=== PATIENT | female | born 1960 | race Caucasian/White ===

== ENCOUNTER 2017-01-25 18:26 | Observation (INO) | payer BC ==
[~2017-01-25] VITALS: Ht 160 cm; Wt 87.8 kg
[~2017-01-25 18:26] MED LIST: AMIT10TA6 PO; AMLO-110 PO; ATV/1 PO; CITA20TA4 PO; TRET0.027 TOP
[2017-01-25] MEDS ORDERED: IBUP-1050 PO (18:50)
--- NOTE | 2017-01-25 19:34 | DIAGNOSTIC IMAGING REPORT ---
CHEST ONE VIEW PORTABLE CLINICAL HISTORY: Chest pain. COMPARISON STUDY: Chest radiograph July 14, 2015. FINDINGS: The lung volumes are normal. There is no pneumothorax or pleural effusion. Cardiomediastinal silhouette is unremarkable. There is no evidence of pulmonary edema. No consolidation is identified. IMPRESSION: No acute cardiopulmonary findings. Electronically signed by: Geovany Mc M.D. 01/25/2017 7:33 PM Dictated Date/Time: 01/25/2017 7:32 PM
[2017-01-25 19:47] LABS: BASO % 0.5 %; BASO ABS # 0.03 K/uL (0-0.2); COMPLETE YES; EOS % 2.7 %; HEMATOCRIT 42.9 % (37-47); IG% 0.2 %; LYMPH % 38.9 %; LYMPH ABS # 2.33 K/uL (1.2-3.4); MEAN CELL VOLUME 85.6 fL (80-100); MEAN CORPUSCULAR HEMOGLOBIN 28.3 pg (25-34); MEAN CORPUSCULAR HGB CONC 33.1 g/dl (32-36); MEAN PLATELET VOLUME 8.5 fL (7.4-10.4); NEUT % 51.7 %; PLATELET COUNT 267 K/uL (130-400); RED BLOOD COUNT 5.01 M/uL (4.2-5.4); WHITE BLOOD COUNT 5.99 K/uL (4.8-10.8)
[2017-01-25] MEDS ORDERED: ASPIRIN 81 MG CHEW PO STA (19:59)
[2017-01-25] MEDS ORDERED: NITROGLYCERIN OINT 2% 1GM PACKET EXT ONE (20:00)
[2017-01-25 20:15] LABS: ALT/SGPT 32 U/L (12-78); BLOOD UREA NITROGEN 12 mg/dl (7-18); CALCIUM 9.5 mg/dl (8.5-10.1); CARBON DIOXIDE 26 mmol/L (21-32); CHLORIDE 105 mmol/L (98-107); CREATININE 0.72 mg/dl (0.60-1.20); GLUCOSE 103 mg/dl (70-99); POTASSIUM 3.5 mmol/L (3.5-5.1); SODIUM 140 mmol/L (136-145)
[2017-01-25 20:20] LABS: ALKALINE PHOSPHATASE 82 U/L (45-117); AST/SGOT 11 U/L (15-37); CKMB/CK RATIO 1.8 (0-3.0)
[2017-01-26] MEDS ORDERED: IV FLUIDS COMPLETED PRN (00:30)
[2017-01-26] MEDS ORDERED: CITALOPRAM 20 MG TAB PO ONE (00:39)
[2017-01-26] MEDS ORDERED: AMITRIPTYLINE HCL 10 MG TAB PO ONE (00:39)
[2017-01-26] MEDS ORDERED: MoRPHine SULFATE 2 MG/ML CARP IV PRN (00:45)
[2017-01-26] MEDS ORDERED: POLYETHYLENE (MIRALAX) 17 GM PACK PO PRN (00:45)
[2017-01-26] MEDS ORDERED: NITROGLYCERIN 0.4 MG SL PER TAB CHARGE SL PRN (00:45)
[2017-01-26] MEDS ORDERED: LORAZEPAM 1 MG TAB PO PRN (00:45)
[2017-01-26] MEDS ORDERED: ACETAMINOPHEN 325 MG TAB PO PRN (00:45)
[2017-01-26] MEDS ORDERED: ONDANSETRON INJ 2 MG/ML 2 ML VIAL IV PRN (00:45)
[2017-01-26 01:09] LABS: PROTHROMBIN TIME (PATIENT) 10.8 SECONDS (9.0-12.0)
--- NOTE | 2017-01-26 01:39 | EMERGENCY ROOM VISIT NOTE ---
History Report prepared by Jcarlos: Mikala Smith Under the Supervision of: Dr. Sundar Cooley M.D. First contact with patient: 19:09 Chief Complaint: SHORTNESS OF BREATH Stated Complaint: SOB, BACK PAIN History of Present Illness The patient is a 56 year old female who presents to the Emergency Room with complaints of persistent back pain that began today prior to arrival. She currently rates her discomfort as a 5/10 in severity. The patient states that yesterday she did not feel well, and states that today she developed lower back pain. She additionally notes that the pain radiates into her bilateral rib cages. The patient additionally associates shortness of breath. She states that she has been experiencing diarrhea. The patient states that she was nauseous earlier today, but states that it has resolved. Pt denies LOC, headache, fevers, chills, diaphoresis, visual changes, neck pain, tearing pain radiating to the back, personal history or family history of aneurysm or pulmonary embolism, uncontrolled hypertension, breathing difficulties, leg swelling, coagulation abnormalities, prolonged travel, recent surgery or immobilization, vomiting, abdominal pain, melena, hematochezia, urinary symptoms , numbness, weakness, lymphadenopathy, rash, or other complaints. Source of History: patient Onset: prior to arrival Position: back Symptom Intensity: 5/10 Timing: other (persistent) Associated Symptoms: + SOB, + nausea, + diarrhea Review of Systems See HPI for pertinent positives and negatives. A total of ten systems were reviewed and were otherwise negative. Past Medical & Surgical Medical Problems: (1) Anxiety (2) Carpal tunnel syndrome (3) Hypertension (4) Shortness of breath Surgical Problems: (1) H/O: hysterectomy (2) History of (3) S/P appendectomy Family History Patient reports no known family medical history. Social History Smoking Status: Never Smoker Alcohol Use: none Drug Use: none Marital Status: Housing Status: lives with significant other Current/Historical Medications Scheduled Amitriptyline Hcl (Elavil), 20 MG PO HS Amlodipine (Norvasc), 5 MG PO DAILY Citalopram Hydrobromide (Citalopram Hydrobromide), 1 TAB PO DAILY Scheduled PRN Ibuprofen (Advil), 200-600 MG PO Q4H PRN for Pain or Fever Lorazepam (Ativan), 1 MG PO HS PRN for Anxiety/Agitation Allergies Coded Allergies: Sulfa Antibiotics (Verified Allergy, Intermediate, severe facial swelling , 01/25/17) Lisinopril (Verified Adverse Reaction, Intermediate, cough, 01/25/17) Physical Exam Vital Signs Date Time Temp Pulse Resp B/P (MAP) Pulse Ox O2 Delivery O2 Flow Rate FiO2 01/26/17 00:45 61 21 125/76 96 Room Air 01/25/17 23:41 57 15 93 Room Air 01/25/17 23:19 58 01/25/17 23:11 63 96 01/25/17 22:41 61 132/74 97 01/25/17 22:40 56 20 132/74 97 Room Air 01/25/17 21:45 60 15 114/77 97 Room Air 01/25/17 21:16 60 17 119/56 01/25/17 21:01 54 15 124/67 01/25/17 20:45 57 130/73 01/25/17 20:37 54 17 133/70 98 Room Air 01/25/17 20:26 61 19 97 Room Air 01/25/17 19:56 53 15 96 Room Air 01/25/17 19:31 64 01/25/17 19:13 97 Room Air 01/25/17 19:13 99 Room Air 01/25/17 18:55 68 18 130/86 98 Room Air 01/25/17 18:38 36.6 66 20 154/79 96 Room Air Physical Exam GENERAL: Awake, alert, well-appearing, in no distress HENT: Normocephalic, atraumatic. Oropharynx unremarkable. EYES: Normal conjunctiva. Sclera non-icteric. NECK: Supple. No nuchal rigidity. FROM. No JVD. RESPIRATORY: Clear to auscultation. CARDIAC: Regular rate, normal rhythm. Extremities warm and well perfused. Pulses equal. ABDOMEN: Soft, non-distended. No tenderness to palpation. No rebound or guarding. No masses. RECTAL: Deferred. MUSCULOSKELETAL: Chest examination reveals no tenderness. The back is symmetrical on inspection without obvious abnormality. There is no CVA tenderness to palpation. No joint edema. LOWER EXTREMITIES: Calves are equal size bilaterally and non-tender. No edema. No discoloration. NEURO: Normal sensorium. No sensory or motor deficits noted. SKIN: No rash or jaundice noted.+ Medical Decision & Procedures ER Provider Diagnostic Interpretation: X-ray: Per my interpretation, radiologist review. CHEST ONE VIEW PORTABLE CLINICAL HISTORY: Chest pain. COMPARISON STUDY: Chest radiograph July 14, 2015. FINDINGS: The lung volumes are normal. There is no pneumothorax or pleural effusion. Cardiomediastinal silhouette is unremarkable. There is no evidence of pulmonary edema. No consolidation is identified. IMPRESSION: No acute cardiopulmonary findings. Electronically signed by: Geovany Mc M.D. 01/25/2017 7:33 PM Dictated Date/Time: 01/25/2017 7:32 PM Laboratory Results 01/25/17 19:36 Red Blood Count 5.01, Mean Corpuscular Volume 85.6, Mean Corpuscular Hemoglobin 28.3, Mean Corpuscular Hemoglobin Concent 33.1, Mean Platelet Volume 8.5, Neutrophils (%) (Auto) 51.7, Lymphocytes (%) (Auto) 38.9, Monocytes (%) (Auto) 6.0, Eosinophils (%) (Auto) 2.7, Basophils (%) (Auto) 0.5, Neutrophils # (Auto) 3.10, Lymphocytes # (Auto) 2.33, Monocytes # (Auto) 0.36, Eosinophils # (Auto) 0.16, Basophils # (Auto) 0.03 01/25/17 19:36 Test 01/25/17 19:36 01/25/17 19:44 01/26/17 01:30 White Blood Count 5.99 K/uL (4.8-10.8) Red Blood Count 5.01 M/uL (4.2-5.4) Hemoglobin 14.2 g/dL (12.0-16.0) Hematocrit 42.9 % (37-47) Mean Corpuscular Volume 85.6 fL (80-100) Mean Corpuscular Hemoglobin 28.3 pg (25-34) Mean Corpuscular Hemoglobin Concent 33.1 g/dl (32-36) Platelet Count 267 K/uL (130-400) Mean Platelet Volume 8.5 fL (7.4-10.4) Neutrophils (%) (Auto) 51.7 % Lymphocytes (%) (Auto) 38.9 % Monocytes (%) (Auto) 6.0 % Eosinophils (%) (Auto) 2.7 % Basophils (%) (Auto) 0.5 % Neutrophils # (Auto) 3.10 K/uL (1.4-6.5) Lymphocytes # (Auto) 2.33 K/uL (1.2-3.4) Monocytes # (Auto) 0.36 K/uL (0.11-0.59) Eosinophils # (Auto) 0.16 K/uL (0-0.5) Basophils # (Auto) 0.03 K/uL (0-0.2) RDW Standard Deviation 41.0 fL (36.4-46.3) RDW Coefficient of Variation 13.0 % (11.5-14.5) Immature Granulocyte % (Auto) 0.2 % Immature Granulocyte # (Auto) 0.01 K/uL (0.00-0.02) Prothrombin Time 10.8 SECONDS (9.0-12.0) Prothromb Time International Ratio 1.0 (0.9-1.1) Anion Gap 9.0 mmol/L (3-11) Est Creatinine Clear Calc Drug Dose 89.9 ml/min Estimated GFR () 107.0 Estimated GFR (Non- 92.3 BUN/Creatinine Ratio 16.0 (10-20) Calcium Level 9.5 mg/dl (8.5-10.1) Total Bilirubin 0.3 mg/dl (0.2-1) Direct Bilirubin < 0.1 mg/dl (0-0.2) Aspartate Amino Transf (AST/SGOT) 11 U/L (15-37) Alanine Aminotransferase (ALT/SGPT) 32 U/L (12-78) Alkaline Phosphatase 82 U/L (45-117) Total Protein 7.6 gm/dl (6.4-8.2) Albumin 4.1 gm/dl (3.4-5.0) Lipase 98 U/L (73-393) Bedside D-Dimer 267 ng/mlFEU (0-450) Creatine Kinase MB Ratio (0-3.0) Laboratory results reviewed by me Medications Administered Medications (Trade) Dose Ordered Sig/Michelle Route Start Time Stop Time Status Last Admin Dose Admin Aspirin (Aspirin Chew) 324 mg NOW STAT PO 01/25/17 19:59 01/25/17 20:00 DC 01/25/17 20:44 324 MG Nitroglycerin (Nitroglycerin 2% Oint) 0.5 inch NOW ONCE EXT 01/25/17 20:00 01/25/17 20:01 DC 01/25/17 20:44 0.5 INCH ECG Indication: SOB/dyspnea Rate (beats per minute): 56 Rhythm: sinus bradycardia Findings: T-wave inversion (Anterior), no ectopy, other (poor R wave progression, LVH) Comparison ECG Date: 2015 Change: When compared to EKG done at an outside site in 2016 show nonspecific T wave abnormalities, no T wave inversions were noted. ED Course 1928: The patient was evaluated in room C6. A complete history and physical exam was performed. 1999: I reevaluated the patient and informed her that her EKG changes are new. Ordered Aspirin 324 mg PO, Nitroglycerin 0.5 inch EXT. 2123: I reevaluated the patient and she is resting comfortably. I discussed the exam findings with her and I discussed the treatment plan. She verbalized complete understanding and agreement. She is going to be evaluated for further treatment. 2206: I discussed the patients case with Rafy Sidhu. She is going to evaluate the patient for further treatment. Medical Decision Medication Reconciliation: I attest that I have personally reviewed the patient' s current medication list Patient was found to have a slightly elevated blood pressure due to circumstances. She will be admitted for further care. Triage Nursing notes reviewed. The patient's presentation and history were concerning for shortness of breath and back pain. Etiologies such as pneumonia, COPD, reactive airway disease, CHF, cardiac ischemia, pulmonary embolism, pneumothorax, musculoskeletal, infections, gastrointestinal, as well as others were entertained. The patient was evaluated. Clinically she looked well however she had some findings on ECG that were somewhat concerning. The patient did not have an old ECG here. I did get a report of an ECG from the [employer] system and this did not have any of the T-wave inversions noted. The patient was given aspirin and nitroglycerin. This did help with her symptoms. Her CBC, chem panel, d-dimer, LFTs, lipase, and cardiac markers were negative. Given the symptoms in conjunction with the ECG the patient will need further evaluation and management in the hospital. Chest x-ray was unremarkable. There is no evidence of widened mediastinum or infiltrate. No pneumothorax. A consultation was placed with the Rafy hospitalist. The patient was evaluated in the Emergency Room for further management. Consults Time Called: [id number] Consulting Physician: Rafy Sidhu Returned Call: [phone] I discussed the patients case with Rafy Sidhu. She is going to evaluate the patient for further treatment. Impression Primary Impression: Shortness of breath Additional Impressions: Back pain Acute electrocardiogram changes Scribe Attestation The scribe's documentation has been prepared under my direction and personally reviewed by me in its entirety. I confirm that the note above accurately reflects all work, treatment, procedures, and medical decision making performed by me. Departure Information Dispostion Being Evaluated By Hospitalist Referrals Marvin Rodriguez M.D. (PCP) Problem Qualifiers
[2017-01-26] MEDS ORDERED: ATORVASTATIN 40 MG TAB PO STA (01:55)
[2017-01-26] MEDS ORDERED: AMLODIPINE BESYLATE 5 MG TAB PO STA (02:14)
[2017-01-26 02:20] VITALS: BP 124/66; PULSE 65; TEMP 36.4; O2SAT 94; Ht 160 cm; Wt 87.8 kg
[2017-01-26 02:53] LABS: CKMB/CK RATIO 1.7 (0-3.0)
--- NOTE | 2017-01-26 04:04 | History and Physical ---
History & Physical Date & Time of Service: Jan 26, 2017 at 00:40 Chief Complaint: Sob, Back Pain Primary Care Physician: Marvin Rodriguez M.D. History of Present Illness Source: patient, clinic records, hospital records 56 yo F with no h/o CAD, obesity, anxiety and early family h/o heart disease in her mother presents today with acute shortness of breath and back pain that radiated around to her chest. This occurred when she awoke from a nap and lasted several hours. She drover herself to the ER and had some acute queasiness and subsequent dry heaving right before getting here. She also reports some loos stools that began last night and had a couple of episodes this morning, also. She states that all her symptoms have resolved and she is asking to go home. She is not sure if she had a stress test in the past. She asks that she not be given a chemical stress test as her mother had issues with them in the past. ROS reveals stuffy nose and headaches which are common for her with chronic sinusitis and migraines, +neck pain-also chronic with DJD of c- spine, otherwise ROS is negative. Past Medical/Surgical History Medical Problems: (1) Anxiety Status: Chronic (2) Carpal tunnel syndrome Status: Resolved (3) DJD (degenerative joint disease), cervical Status: Chronic (4) Hypertension Status: Chronic (5) RAMIREZ (obstructive sleep apnea) Status: Chronic Surgical Problems: (1) H/O: hysterectomy Status: Chronic (2) History of Status: Chronic (3) S/P appendectomy Status: Chronic Family History Early CAD BROTHER (30s) Social History Smoking Status: Never Smoker Smokeless Tobacco Use: No Alcohol Use: socially Drug Use: none Marital Status: Housing status: lives with significant other Occupational Status: employed Immunizations History of Influenza Vaccine: Yes Influenza Vaccine Date: May 01, 2016 History of Tetanus Vaccine?: Yes Tetanus Immunization Date: Oct 06, 2009 History of Pneumococcal: No History of Hepatitis B Vaccine: No Multi-Drug Resistant Organisms History of MDRO: No Allergies Coded Allergies: Sulfa Antibiotics (Verified Allergy, Intermediate, severe facial swelling , 01/25/17) Lisinopril (Verified Adverse Reaction, Intermediate, cough, 01/25/17) Home Medications Scheduled Amitriptyline Hcl (Elavil), 20 MG PO HS Amlodipine (Norvasc), 5 MG PO DAILY Citalopram Hydrobromide (Citalopram Hydrobromide), 1 TAB PO DAILY Scheduled PRN Ibuprofen (Advil), 200-600 MG PO Q4H PRN for Pain or Fever Lorazepam (Ativan), 1 MG PO HS PRN for Anxiety/Agitation Review of Systems At least ten systems were reviewed and negative except as indicated in HPI Physical Exam Vital Signs Date Time Temp Pulse Resp B/P (MAP) Pulse Ox O2 Delivery O2 Flow Rate FiO2 01/25/17 23:41 57 15 93 Room Air 01/25/17 23:19 58 01/25/17 23:11 63 96 01/25/17 22:41 61 132/74 97 01/25/17 22:40 56 20 132/74 97 Room Air 01/25/17 21:45 60 15 114/77 97 Room Air 01/25/17 21:16 60 17 119/56 01/25/17 21:01 54 15 124/67 01/25/17 20:45 57 130/73 01/25/17 20:37 54 17 133/70 98 Room Air 01/25/17 20:26 61 19 97 Room Air 01/25/17 19:56 53 15 96 Room Air 01/25/17 19:31 64 01/25/17 19:13 97 Room Air 01/25/17 19:13 99 Room Air 01/25/17 18:55 68 18 130/86 98 Room Air 01/25/17 18:38 36.6 66 20 154/79 96 Room Air GEN: onese, in no acute distress, alert and appropriate HEENT: NC/AT, PERRL, normal sclerae/conjunctivae, EOMI, pharynx non-acute, MMM CARDIO: reg rate, S1/2 heard without m/g/r, no JVD LUNGS: CTA bilaterally, no crackles, rales or wheezes, good diaphragmatic excursion BACK: no paraspinal TTP, normal movement. ABD: soft, non-tender, non-distended, no rebound or guarding, +BS EXTREMITY: RP and DP palpable 2+ bilat, no LE swelling or edema, extremities are warm and well-perfused NEURO: CN 2-12 grossly intact, sensation intact throughout, coordination intact , (reflexes) knee 2/4 bilat MUSC: 5/5 strength throughout, no gross focal deficits SKIN: warm and dry Diagnostics Laboratory Results 01/25/17 19:36 Red Blood Count 5.01, Mean Corpuscular Volume 85.6, Mean Corpuscular Hemoglobin 28.3, Mean Corpuscular Hemoglobin Concent 33.1, Mean Platelet Volume 8.5, Neutrophils (%) (Auto) 51.7, Lymphocytes (%) (Auto) 38.9, Monocytes (%) (Auto) 6.0, Eosinophils (%) (Auto) 2.7, Basophils (%) (Auto) 0.5, Neutrophils # (Auto) 3.10, Lymphocytes # (Auto) 2.33, Monocytes # (Auto) 0.36, Eosinophils # (Auto) 0.16, Basophils # (Auto) 0.03 01/25/17 19:36 Test 01/25/17 19:36 01/25/17 19:44 01/26/17 02:00 White Blood Count 5.99 K/uL (4.8-10.8) Red Blood Count 5.01 M/uL (4.2-5.4) Hemoglobin 14.2 g/dL (12.0-16.0) Hematocrit 42.9 % (37-47) Mean Corpuscular Volume 85.6 fL (80-100) Mean Corpuscular Hemoglobin 28.3 pg (25-34) Mean Corpuscular Hemoglobin Concent 33.1 g/dl (32-36) Platelet Count 267 K/uL (130-400) Mean Platelet Volume 8.5 fL (7.4-10.4) Neutrophils (%) (Auto) 51.7 % Lymphocytes (%) (Auto) 38.9 % Monocytes (%) (Auto) 6.0 % Eosinophils (%) (Auto) 2.7 % Basophils (%) (Auto) 0.5 % Neutrophils # (Auto) 3.10 K/uL (1.4-6.5) Lymphocytes # (Auto) 2.33 K/uL (1.2-3.4) Monocytes # (Auto) 0.36 K/uL (0.11-0.59) Eosinophils # (Auto) 0.16 K/uL (0-0.5) Basophils # (Auto) 0.03 K/uL (0-0.2) RDW Standard Deviation 41.0 fL (36.4-46.3) RDW Coefficient of Variation 13.0 % (11.5-14.5) Immature Granulocyte % (Auto) 0.2 % Immature Granulocyte # (Auto) 0.01 K/uL (0.00-0.02) Prothrombin Time 10.8 SECONDS (9.0-12.0) Prothromb Time International Ratio 1.0 (0.9-1.1) Anion Gap 9.0 mmol/L (3-11) Est Creatinine Clear Calc Drug Dose 89.9 ml/min Estimated GFR () 107.0 Estimated GFR (Non- 92.3 BUN/Creatinine Ratio 16.0 (10-20) Calcium Level 9.5 mg/dl (8.5-10.1) Total Bilirubin 0.3 mg/dl (0.2-1) Direct Bilirubin < 0.1 mg/dl (0-0.2) Aspartate Amino Transf (AST/SGOT) 11 U/L (15-37) Alanine Aminotransferase (ALT/SGPT) 32 U/L (12-78) Alkaline Phosphatase 82 U/L (45-117) Total Protein 7.6 gm/dl (6.4-8.2) Albumin 4.1 gm/dl (3.4-5.0) Lipase 98 U/L (73-393) Bedside D-Dimer 267 ng/mlFEU (0-450) Total Creatine Kinase 72 U/L (26-192) Creatine Kinase MB 1.2 ng/ml (0.5-3.6) Creatine Kinase MB Ratio 1.7 (0-3.0) Troponin I < 0.015 ng/ml (0-0.045) Results Past 24 Hours Test 01/25/17 19:36 01/25/17 19:44 01/26/17 00:32 Range/Units White Blood Count 5.99 4.8-10.8 K/uL Red Blood Count 5.01 4.2-5.4 M/uL Hemoglobin 14.2 12.0-16.0 g/dL Hematocrit 42.9 37-47 % Mean Corpuscular Volume 85.6 80-100 fL Mean Corpuscular Hemoglobin 28.3 25-34 pg Mean Corpuscular Hemoglobin Concent 33.1 32-36 g/dl Platelet Count 267 130-400 K/uL Mean Platelet Volume 8.5 7.4-10.4 fL Neutrophils (%) (Auto) 51.7 % Lymphocytes (%) (Auto) 38.9 % Monocytes (%) (Auto) 6.0 % Eosinophils (%) (Auto) 2.7 % Basophils (%) (Auto) 0.5 % Neutrophils # (Auto) 3.10 1.4-6.5 K/uL Lymphocytes # (Auto) 2.33 1.2-3.4 K/uL Monocytes # (Auto) 0.36 0.11-0.59 K/uL Eosinophils # (Auto) 0.16 0-0.5 K/uL Basophils # (Auto) 0.03 0-0.2 K/uL RDW Standard Deviation 41.0 36.4-46.3 fL RDW Coefficient of Variation 13.0 11.5-14.5 % Immature Granulocyte % (Auto) 0.2 % Immature Granulocyte # (Auto) 0.01 0.00-0.02 K/uL Sodium Level 140 136-145 mmol/L Potassium Level 3.5 3.5-5.1 mmol/L Chloride Level 105 98-107 mmol/L Carbon Dioxide Level 26 21-32 mmol/L Anion Gap 9.0 3-11 mmol/L Blood Urea Nitrogen 12 7-18 mg/dl Creatinine 0.72 0.60-1.20 mg/dl Est Creatinine Clear Calc Drug Dose 89.9 ml/min Estimated GFR () 107.0 Estimated GFR (Non- 92.3 BUN/Creatinine Ratio 16.0 10-20 Random Glucose 103 70-99 mg/dl Calcium Level 9.5 8.5-10.1 mg/dl Total Bilirubin 0.3 0.2-1 mg/dl Direct Bilirubin < 0.1 0-0.2 mg/dl Aspartate Amino Transf (AST/SGOT) 11 15-37 U/L Alanine Aminotransferase (ALT/SGPT) 32 12-78 U/L Alkaline Phosphatase 82 45-117 U/L Total Creatine Kinase 94 26-192 U/L Creatine Kinase MB 1.7 0.5-3.6 ng/ml Creatine Kinase MB Ratio 1.8 0-3.0 Troponin I < 0.015 0-0.045 ng/ml Total Protein 7.6 6.4-8.2 gm/dl Albumin 4.1 3.4-5.0 gm/dl Lipase 98 73-393 U/L Bedside D-Dimer 267 0-450 ng/mlFEU Diagnostic Radiology CHEST ONE VIEW PORTABLE CLINICAL HISTORY: Chest pain. COMPARISON STUDY: Chest radiograph July 14, 2015. FINDINGS: The lung volumes are normal. There is no pneumothorax or pleural effusion. Cardiomediastinal silhouette is unremarkable. There is no evidence of pulmonary edema. No consolidation is identified. IMPRESSION: No acute cardiopulmonary findings. EKG SB 56, TWI in V1-V3 Impression Assessment and Plan 56 yo F with significant shortness of breath and back pain that radiated around to her chest. 1. Dyspnea-poss 2/2 ACS although symptoms are very atypical. D-dimer was negative making PE and aortic dissection less likely. Symptoms have resolved at this time. 2. Back pain -resolved. Pt unsure what brought symptoms on but may have been related to anxiety or musculoskeletal issues. Doubt ACS. 3. Anxiety-continues on Celexa 20mg daily. 4. HTN-controlled, cont Norvasc 5mg PO daily. 5. RAMIREZ-ordered respiratory to set up BIPAP at night or while sleeping. 6. Migraines-takes Elavil QHS DVT proph-Lovenox 40 FULL CODE Dispo-telemetry overnight. Priya Goins DO [facility] Hospitalist. Level of Care Telemetry Resuscitation Status FULL RESUSCITATION VTE Prophylaxis VTE Risk Assessment Done? Y/N: Yes Risk Level: Moderate Given or contraindicated: Enoxaparin (Lovenox)SQ
[2017-01-26 05:04] VITALS: BP 124/73; PULSE 87; TEMP 36.5; O2SAT 95
[2017-01-26 07:29] VITALS: BP 124/78; PULSE 64; TEMP 36.6; O2SAT 96
[2017-01-26 07:53] LABS: CHOLESTEROL 162 mg/dl (0-200); CHOLESTEROL/HDL RATIO 3.6; CKMB/CK RATIO 1.8 (0-3.0); HDL CHOLESTEROL 45 mg/dl; LDL CHOLESTEROL CALCULATED 88 mg/dl; TRIGLYCERIDES 146 mg/dl (0-150); VERY LOW DENSITY LIPOPROT CALC 29 mg/dl
[2017-01-26] MEDS ORDERED: CITALOPRAM 20 MG TAB PO SCH (09:00)
[2017-01-26] MEDS ORDERED: ENOXAPARIN 40 MG/0.4 ML SYR SC SCH (09:00)
[2017-01-26] MEDS ORDERED: AMLODIPINE BESYLATE 5 MG TAB PO SCH ×2 (09:00→21:00)
--- NOTE | 2017-01-26 10:11 | Cardiology Consultation ---
Cardiology Consultation Date of Consultation: Jan 26, 2017 History of Present Illness Masha Mckinney is a 56 year old female seen in cardiology consultation per the request of Dr. Goins for the evaluation of abnormal EKG, shortness of breath, back pain, and abdominal discomfort. 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. She has a history of hypertension and obstructive sleep apnea. She notes that 3 days ago she helped her son move this required lifting items and doing a lot of walking. She felt well when she did these activities with no symptoms. Yesterday she had a vague illness including an upset stomach and stayed home from work. She took a nap when she got up she had acute onset of low back pain that wrapped around to the lower border of her ribs and chest and it had abdominal discomfort earlier. She spoke to a friend who is a nurse and came to the emergency room for further treatment. Her vital signs have remained stable. Her initial EKG performed on 01/25/2017 at 1920 hrs. revealed sinus bradycardia 56 bpm with poor R-wave progression, T-wave inversions noted in V1 -V3. A repeat EKG performed this morning revealed continued nonspecific T wave abnormalities in leads V1 to V3 with more of a biphasic T-wave appearance V2 and V3 rather than T-wave inversion. An outpatient EKG performed on 11/21/2015 revealed T wave flattening in the same territory. The patient's cardiac enzymes have been negative 3. This morning she feels well. She denies any chest discomfort in her back pain has resolved. On review of systems she does note a vague shortness of breath with exertion but she does not state that this is significant at present. History Past Medical History: 1. Hypertension 2. Obstructive sleep apnea 3. History of tension headaches Past Surgical History: 1. Left carpal tunnel release, 2009 2. Right carpal tunnel release 2010 3. section 2 4. Colonoscopy 2015 with findings of diverticulosis 5. Total hysterectomy 1996 for endometriosis Social History: Patient is a nonsmoker. 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 A total of 10 systems reviewed and were otherwise negative. Allergies Coded Allergies: Sulfa Antibiotics (Verified Allergy, Intermediate, severe facial swelling , 01/25/17) Lisinopril (Verified Adverse Reaction, Intermediate, cough, 01/25/17) Medications Reported Home Medications Medications Dose Route/Sig Max Daily Dose Days Date Category Advil (Ibuprofen) 200 Mg Tab 200-600 Mg PO Q4H PRN 01/25/17 Reported Ativan (Lorazepam) 1 Mg Tab 1 Mg PO HS PRN 07/14/15 Reported Norvasc (Amlodipine Besylate) 5 Mg Tab 5 Mg PO DAILY 07/14/15 Reported Elavil (Amitriptyline Hcl) 10 Mg Tab 20 Mg PO HS 07/14/15 Reported Citalopram Hydrobromide 20 Mg Tab 1 Tab PO DAILY 90 07/14/15 Reported Physical Exam Vital Signs (Last 8hrs): Last 8 Hrs Date Time Temp Pulse Resp B/P (MAP) Pulse Ox O2 Delivery O2 Flow Rate FiO2 01/26/17 08:00 Room Air 01/26/17 07:29 36.6 64 16 124/78 (93) 96 Room Air 01/26/17 05:04 36.5 87 16 124/73 (90) 95 Room Air 01/26/17 04:00 Room Air 01/26/17 02:20 36.4 65 18 124/66 94 Room Air General Appearance: Alert and Oriented x3. NAD. Head: Normocephalic Atraumatic. Eyes: PERRLA, EOMI, conjunctiva and sclera clear Neck: Supple. No carotid bruits noted. No JVD. No HJD. Respiratory: Breath sounds clear to auscultation bilaterally. No w/r/r. Cardiovascular: Reg rate and rhythm. S1 and S2 noted. No murmurs, rubs, gallops. PMI non displace. Abdomen: Normal bowel sounds, soft nontender. no abdominal bruits. Extremities: No edema, no clubbing or cyanosis. distal pulses 2/4 bilaterally. Neuro: No focal deficits. Psychiatric: Normal affect. Data D-dimer screen on 01/25/17 was negative. Last Resulted 01/25/17 19:36 Red Blood Count 5.01, Mean Corpuscular Volume 85.6, Mean Corpuscular Hemoglobin 28.3, Mean Corpuscular Hemoglobin Concent 33.1, Mean Platelet Volume 8.5, Neutrophils (%) (Auto) 51.7, Lymphocytes (%) (Auto) 38.9, Monocytes (%) (Auto) 6.0, Eosinophils (%) (Auto) 2.7, Basophils (%) (Auto) 0.5, Neutrophils # (Auto) 3.10, Lymphocytes # (Auto) 2.33, Monocytes # (Auto) 0.36, Eosinophils # (Auto) 0.16, Basophils # (Auto) 0.03 Last Resulted 01/25/17 19:36 Past 24 Hours Test 01/25/17 19:36 01/26/17 02:00 01/26/17 07:18 Range/Units Creatine Kinase MB 1.7 1.2 1.2 0.5-3.6 ng/ml Creatine Kinase MB Ratio 1.8 1.7 1.8 0-3.0 Prothromb Time International Ratio 1.0 0.9-1.1 Prothrombin Time 10.8 9.0-12.0 SECONDS Total Creatine Kinase 94 72 67 26-192 U/L Troponin I < 0.015 < 0.015 < 0.015 0-0.045 ng/ml Imaging: Chest x-ray report per radiology revealed no acute cardiopulmonary pathology EKG: As outlined in history of present illness Telemetry reviewed: Sinus rhythm Assessment & Plan Impression: 56-year-old female 1. Back discomfort, in retrospect, perhaps musculoskeletal. 2. Abnormal EKG, findings are somewhat nonspecific given her history and negative troponin. 3. Strong family history of ischemic heart disease 4. History of hypertension. 5. Lipid levels are relatively well-controlled with an LDL cholesterol 88 mg/ dL off of therapy Recommendations: Resting Echo. Proceed with Exercise Stress Echocardiogram. Further Additions Will Be Forthcoming after the Stress Echocardiogram Is Completed. Serafin Reid DO, FACC, FACOI Associate Director Global Market Research [facility], [facility]
[2017-01-26 11:14] VITALS: BP 118/78; PULSE 65; TEMP 36.7; O2SAT 95
--- NOTE | 2017-01-26 13:28 | Cardiology Procedure Brief Nt ---
Preliminary Cardiology Note Procedure Date Jan 26, 2017. Pre-Procedure Diagnosis back pain, atypical for angina Post-Procedure Diagnosis non ischemic stress test Procedure(s) Performed exercise stress echocardiogram Orthopedic Coder Tenzin Reid DO Lens Grinder Apprentice(s) TREVA Hernandez Estimated Blood Loss none Preliminary Findings Normal stress echo. Recommendations Patient's presenting symptoms were likely due to musculoskeletal back pain. Continue home BP medication. Follow up with PCP. Specimens none Complication(s) None Disposition telemetry.
--- NOTE | 2017-01-26 14:36 | EXERCISE STRESS ECHO ---
*NOTICE TO RECEIVING [employer] This information is strictly Confidential and protected under [place] law. [place] law prohibits you from making any further disclosure of this information unless further disclosure is expressly permitted by the written consent of the person to whom it pertains or is authorized by law. A general authorization for the release of medical or other information is not sufficient for this purpose. Hospital accepts no responsibility if the information is made available to any other person, INCLUDING THE PATIENT. Interpretation Summary * Name: JEANNETTE CLIFTON Study Date: 01/26/2017 11:32 AM BP: 116/73 mmHg * Patient Location: [facility]\S\N287\S\1 HR: 64 * : 1960 (M/d/yyyy) Gender: Female Height: 63 in * Age: 56 yrs Ethnicity: [place] Weight: 193 lb * Ordering Physician: Serafin eRid * Referring Physician: Self, Referred * Performed By: Tracey Flores [facility] * * Reason For Study: CHEST PAIN * BSA: 1.9 m2 * -- Conclusions -- * The study was technically adequate. * The exercise echocardiographic examination is normal without resting left ventricular wall motion abnormalities or inducible ischemia. * The stress EKG response was normal. * The heart rate and blood pressure responses to exercise were normal. * No symptoms suggestive of angina were induced. * No significant valvular heart disease was present on the resting study. Procedure Details * ECHOEX, CPT #[id number] * ECHO DOPPLER, CPT #[id number] * ECHO COLOR FLOW, CPT #[id number] Left Ventricle * The left ventricle is normal in size. * There is normal left ventricular wall thickness. * Left ventricular systolic function is normal. * Ejection Fraction = 55-60%. * Resting wall motion: Normal. Stress wall motion: Appropriate increase in Left ventricular systolic function and decrease in cavity size. No stress induced segmental wall motion abnormalities. Right Ventricle * The right ventricle is normal in size and function. Atria * The left atrial size is normal. * Right atrial size is normal. * No ASD detected; PFO is not assessed. Mitral Valve * The mitral valve is normal. * There is no mitral valve stenosis. * There is trace mitral regurgitation. Tricuspid Valve * The tricuspid valve is normal. * There is no tricuspid stenosis. * There is trace tricuspid regurgitation. Aortic Valve * The aortic valve is trileaflet. * No hemodynamically significant valvular aortic stenosis. * No aortic regurgitation is present. Pulmonic Valve * The pulmonic valve is not well visualized. Great Vessels * The aortic root is normal size. Pericardium * There is no pericardial effusion. * There is an echodensity in the pericardial space consistent with pericardial fat. Stress Parameters * The baseline EKG reveals sinus rhythm with non specifict T wave changes in the anteroseptal leads. * The stress ECG response was normal * No arrhythmia were noted with stress. * The stress portion of this study was personally supervised by the undersigned interpreting physician. * Rest heart rate was '64' BPM. * Rest blood pressure was '116/73' * Maximum heart rate achieved was 146 bpm. * Maximum heart rate was 90 % of maximum age-predicted heart rate. * Maximum blood pressure was '163/90' * Total exercise time was '05:59' * Maximum exercise MET level achieved was '7.00' METS * Maximum treadmill speed was '2.50' miles per hour. * Maximum treadmill elevation was '12.00'% grade. Left Ventricular Diastolic Function * Grade I diastolic dysfunction, (abnormal relaxation pattern). MMode 2D Measurements and Calculations Ao root diam 2.6 cm Ao root area 5.4 cm\S\2 ACS 1.7 cm LA dimension 3.6 cm LA/Ao 1.4 LVAd ap4 29.2 cm\S\2 LVLd ap4 7.2 cm EDV(MOD-sp4) 95.2 ml EDV(sp4-el) 100.6 ml LVAs ap4 18.7 cm\S\2 LVLs ap4 6.4 cm ESV(MOD-sp4) 45.8 ml ESV(sp4-el) 46.4 ml EF(MOD-sp4) 51.9 % EF(sp4-el) 53.9 % LVAd ap2 30.7 cm\S\2 LVLd ap2 7.7 cm EDV(MOD-sp2) 100.8 ml EDV(sp2-el) 103.6 ml LVAs ap2 18.7 cm\S\2 LVLs ap2 6.5 cm ESV(MOD-sp2) 44.4 ml ESV(sp2-el) 45.8 ml EF(MOD-sp2) 55.9 % EF(sp2-el) 55.8 % LVLd %diff 6.8 % EDV(MOD-bp) 97.2 ml LVLs %diff 2.0 % ESV(MOD-bp) 45.5 ml EF(MOD-bp) 53.1 % SV(MOD-sp4) 49.4 ml SI(MOD-sp4) 25.9 ml/m\S\2 SV(MOD-sp2) 56.4 ml SI(MOD-sp2) 29.6 ml/m\S\2 SV(MOD-bp) 51.6 ml SI(MOD-bp) 27.1 ml/m\S\2 SV(sp4-el) 54.2 ml SI(sp4-el) 28.4 ml/m\S\2 SV(sp2-el) 57.8 ml SI(sp2-el) 30.4 ml/m\S\2 Doppler Measurements and Calculations MV E max haily 60.4 cm/sec MV A max haily 65.2 cm/sec MV E/A 0.93 MV P1/2t max haily 70.6 cm/sec MV P1/2t 63.1 msec MVA(P1/2t) 3.5 cm\S\2 MV dec slope 327.7 cm/sec\S\2 MV dec time 0.27 sec Ao V2 max 118.9 cm/sec Ao max PG 5.7 mmHg Ao max PG (full) 2.0 mmHg LV V1 max PG 3.6 mmHg LV V1 max 95.4 cm/sec PA V2 max 101.2 cm/sec PA max PG 4.1 mmHg PI max haily 130.7 cm/sec PI max PG 6.8 mmHg PI dec slope 91.2 cm/sec\S\2 PI P1/2t 419.6 msec
[2017-01-26 15:41] VITALS: BP 123/76; PULSE 57; TEMP 36.8; O2SAT 96
--- NOTE | 2017-01-26 17:51 | Progress Note ---
Medicine Progress Note Date & Time of Visit: Jan 26, 2017 at 17:46. Subjective patient seen sitting up in bedside chair in good spirits states back pain and chest pain have resolved feels good overall denies any symptoms states she is ready and would like to be discharged today Objective Last 8 Hrs Date Time Temp Pulse Resp B/P (MAP) Pulse Ox O2 Delivery O2 Flow Rate FiO2 01/26/17 16:00 Room Air 01/26/17 15:41 36.8 57 18 123/76 (92) 96 Room Air 01/26/17 12:00 Room Air 01/26/17 11:14 36.7 65 18 118/78 (91) 95 Room Air Physical Exam: General- oriented x 3, not in distress, speaks in sentences with no effort Eyes- EOMI, anicteric ENT- oropharynx clear Neck- supple, no JVD Lungs- clear breath sounds bilaterally Heart- regular rhythm; no murmur, normal rate Abdomen- normal bowel sounds, soft, nontender Extremities- no pretibial edema, no calf tenderness Neuro- alert, oriented x 3;no gross focal deficits Skin- warm & dry Laboratory Results: Last 24 Hours Test 01/25/17 19:36 01/25/17 19:44 01/26/17 02:00 01/26/17 07:18 White Blood Count 5.99 K/uL Red Blood Count 5.01 M/uL Hemoglobin 14.2 g/dL Hematocrit 42.9 % Mean Corpuscular Volume 85.6 fL Mean Corpuscular Hemoglobin 28.3 pg Mean Corpuscular Hemoglobin Concent 33.1 g/dl Platelet Count 267 K/uL Mean Platelet Volume 8.5 fL Neutrophils (%) (Auto) 51.7 % Lymphocytes (%) (Auto) 38.9 % Monocytes (%) (Auto) 6.0 % Eosinophils (%) (Auto) 2.7 % Basophils (%) (Auto) 0.5 % Neutrophils # (Auto) 3.10 K/uL Lymphocytes # (Auto) 2.33 K/uL Monocytes # (Auto) 0.36 K/uL Eosinophils # (Auto) 0.16 K/uL Basophils # (Auto) 0.03 K/uL RDW Standard Deviation 41.0 fL RDW Coefficient of Variation 13.0 % Immature Granulocyte % (Auto) 0.2 % Immature Granulocyte # (Auto) 0.01 K/uL Prothrombin Time 10.8 SECONDS Prothromb Time International Ratio 1.0 Sodium Level 140 mmol/L Potassium Level 3.5 mmol/L Chloride Level 105 mmol/L Carbon Dioxide Level 26 mmol/L Anion Gap 9.0 mmol/L Blood Urea Nitrogen 12 mg/dl Creatinine 0.72 mg/dl Est Creatinine Clear Calc Drug Dose 89.9 ml/min Estimated GFR () 107.0 Estimated GFR (Non- 92.3 BUN/Creatinine Ratio 16.0 Random Glucose 103 mg/dl Calcium Level 9.5 mg/dl Total Bilirubin 0.3 mg/dl Direct Bilirubin < 0.1 mg/dl Aspartate Amino Transf (AST/SGOT) 11 U/L Alanine Aminotransferase (ALT/SGPT) 32 U/L Alkaline Phosphatase 82 U/L Total Creatine Kinase 94 U/L 72 U/L 67 U/L Creatine Kinase MB 1.7 ng/ml 1.2 ng/ml 1.2 ng/ml Creatine Kinase MB Ratio 1.8 1.7 1.8 Troponin I < 0.015 ng/ml < 0.015 ng/ml < 0.015 ng/ml Total Protein 7.6 gm/dl Albumin 4.1 gm/dl Lipase 98 U/L Bedside D-Dimer 267 ng/mlFEU Triglycerides Level 146 mg/dl Cholesterol Level 162 mg/dl HDL Cholesterol 45 mg/dl LDL Cholesterol, Calculated 88 mg/dl VLDL Cholesterol, Calculated 29 mg/dl Cholesterol/HDL Ratio 3.6 Assessment & Plan 56 yo F with significant shortness of breath and back pain that radiated around to her chest. BACK PAIN, RADIATING TO THE CHEST WITH DYSPNEA LIKELY MUSCULOSKELETAL ETIOLOGY ACUTE CORONARY SYNDROME RULED OUT - cardiac markers negative EKG sinus bradycardia, non specific t wave changes v1-v3 D dimer negative - evaluated by Dr. Reid s/p Stress Echo: normal study - cleared for discharge continue usual medications advised to avoid strenuous activities for a few days - follow up with PCP in 3-5 days Anxiety-continues on Celexa 20mg daily. HTN-controlled, cont Norvasc 5mg PO daily. RAMIREZ-continue CPAP Migraines-takes Elavil QHS Dispo d/c home ff up with PCP in 3-5 days Current Inpatient Medications: Current Inpatient Medications Medications (Trade) Dose Ordered Sig/Michelle Route Start Time Stop Time Status Last Admin Dose Admin Miscellaneous (Iv Fluids Completed) 1 ea PRN PRN N/A 01/26/17 00:30 01/26/18 00:29 Enoxaparin Sodium (Lovenox Inj) 40 mg Q24H SC 01/26/17 09:00 02/25/17 08:59 Acetaminophen (Tylenol Tab) 650 mg Q4H PRN PO 01/26/17 00:45 02/25/17 00:44 Ondansetron HCl (Zofran Inj) 4 mg Q6H PRN IV 01/26/17 00:45 02/25/17 00:44 Nitroglycerin (Nitrostat Tab) 0.4 mg UD PRN SL 01/26/17 00:45 02/25/17 00:44 Morphine Sulfate (MoRPHine SULFATE INJ) 2 mg Q30M PRN IV 01/26/17 00:45 02/09/17 00:44 Polyethylene (Miralax Powder Packet) 17 gm DAILY PRN PO 01/26/17 00:45 02/25/17 00:44 Amitriptyline HCl (Elavil Tab) 20 mg HS PO 01/26/17 21:00 02/25/17 20:59 Citalopram Hydrobromide (celeXA TAB) 20 mg DAILY PO 01/26/17 09:00 02/25/17 08:59 01/26/17 08:15 20 MG Lorazepam (Ativan Tab) 1 mg HS PRN PO 01/26/17 00:45 02/25/17 00:44 Amlodipine Besylate (Norvasc Tab) 5 mg DAILY@2100 PO 01/26/17 21:00 02/25/17 20:59
--- NOTE | 2017-01-26 17:56 | Discharge Summary ---
Discharge Summary Date of Service Jan 26, 2017. Discharge Summary Admission Date: Jan 25, 2017 at 23:46 Discharge Date: Jan 26, 2017 Discharge Disposition: Home Principal Diagnosis: BACK PAIN, RADIATING TO THE CHEST WITH DYSPNEA LIKELY MUSCULOSKELETAL ETIOLOGY ACUTE CORONARY SYNDROME RULED OUT Secondary Diagnoses/Problems: PLEASE REFER TO HOSPITAL COURSE BELOW. Procedures: STRESS TEST BY DR. REID * -- Conclusions -- * The study was technically adequate. * The exercise echocardiographic examination is normal without resting left ventricular wall motion abnormalities or inducible ischemia. * The stress EKG response was normal. * The heart rate and blood pressure responses to exercise were normal. * No symptoms suggestive of angina were induced. * No significant valvular heart disease was present on the resting study. Consultations: INSTRUCTIONAL TECHNOLOGY FACILITATOR DR. REID Pending Studies/Follow-Up: PLEASE REFER TO HOSPITAL COURSE BELOW. Medication Reconciliation Continued Medications: Amitriptyline Hcl (Elavil) 10 Mg Tab 20 MG PO HS, TAB Amlodipine (Norvasc) 5 Mg Tab 5 MG PO DAILY, TAB Citalopram Hydrobromide (Citalopram Hydrobromide) 20 Mg Tab 1 TAB PO DAILY for 90 Days, #90 TAB 3 Refills Ibuprofen (Advil) 200 Mg Tab 200-600 MG PO Q4H PRN for Pain or Fever, TAB Lorazepam (Ativan) 1 Mg Tab 1 MG PO HS PRN for Anxiety/Agitation, TAB Admission Information HPI (per Admitting provider): 56 yo F with no h/o CAD, obesity, anxiety and early family h/o heart disease in her mother presents today with acute shortness of breath and back pain that radiated around to her chest. This occurred when she awoke from a nap and lasted several hours. She drover herself to the ER and had some acute queasiness and subsequent dry heaving right before getting here. She also reports some loos stools that began last night and had a couple of episodes this morning, also. She states that all her symptoms have resolved and she is asking to go home. She is not sure if she had a stress test in the past. She asks that she not be given a chemical stress test as her mother had issues with them in the past. ROS reveals stuffy nose and headaches which are common for her with chronic sinusitis and migraines, +neck pain-also chronic with DJD of c- spine, otherwise ROS is negative. Physical Exam (per Admitting): GEN: onese, in no acute distress, alert and appropriate HEENT: NC/AT, PERRL, normal sclerae/conjunctivae, EOMI, pharynx non-acute, MMM CARDIO: reg rate, S1/2 heard without m/g/r, no JVD LUNGS: CTA bilaterally, no crackles, rales or wheezes, good diaphragmatic excursion BACK: no paraspinal TTP, normal movement. ABD: soft, non-tender, non-distended, no rebound or guarding, +BS EXTREMITY: RP and DP palpable 2+ bilat, no LE swelling or edema, extremities are warm and well-perfused NEURO: CN 2-12 grossly intact, sensation intact throughout, coordination intact , (reflexes) knee 2/4 bilat MUSC: 5/5 strength throughout, no gross focal deficits SKIN: warm and dry Hospital Course 56 yo F with significant shortness of breath and back pain that radiated around to her chest. BACK PAIN, RADIATING TO THE CHEST WITH DYSPNEA LIKELY MUSCULOSKELETAL ETIOLOGY ACUTE CORONARY SYNDROME RULED OUT - cardiac markers negative EKG sinus bradycardia, non specific t wave changes v1-v3 D dimer negative - evaluated by Dr. Reid s/p Stress Echo: normal study - cleared for discharge continue usual medications advised to avoid strenuous activities for a few days - follow up with PCP in 3-5 days Anxiety-continues on Celexa 20mg daily. HTN-controlled, cont Norvasc 5mg PO daily. RAMIREZ-continue CPAP Migraines-takes Elavil QHS Dispo d/c home ff up with PCP in 3-5 days Total time spent on discharge = 30 MINUTES This includes examination of the patient, discharge planning, medication reconciliation, and communication with other providers. Discharge Instructions Discharge Instructions Date of Service Jan 26, 2017. Admission Reason for Admission: Shortness Of Breath Discharge Discharge Diagnosis / Problem: Back pain, Chest pain Discharge Goals Goal(s): Diagnostic testing, Therapeutic intervention Activity Recommendations Activity Limitations: as noted below (increase activity gradually as tolerated) Lifting Limitations: until after follow-up appointment Exercise/Sports Limitations: until after follow-up appointment . Instructions / Follow-Up Instructions / Follow-Up CALL PRIMARY CARE PHYSICIAN IMMEDIATELY IF WITH RECURRENCE OF SYMPTOMS. AVOID STRENUOUS ACTIVITIES UNTIL FOLLOW UP WITH PRIMARY CARE PHYSICIAN. FOLLOW UP WITH DR. ZHANG IN 3-5 DAYS. THE CLINIC WILL CALL YOU FOR THE APPOINTMENT DATE. Current Hospital Diet Patient's current hospital diet: AHA Diet (Heart Healthy) Discharge Diet Recommended Diet: AHA Diet (Heart Healthy) Procedures Procedures Performed: STRESS TEST Pending Studies Studies pending at discharge: no Laboratory Results Lipid Panel Test 01/26/17 07:18 Range/Units Triglycerides Level 146 0-150 mg/dl Cholesterol Level 162 0-200 mg/dl HDL Cholesterol 45 mg/dl Cholesterol/HDL Ratio 3.6 LDL Cholesterol, Calculated 88 mg/dl Medical Emergencies . Who to Call and When: Medical Emergencies: If at any time you feel your situation is an emergency, please call 911 immediately. . Non-Emergent Contact Non-Emergency issues call your: Primary Care Provider Call Non-Emergent contact if: you have a fever, your pain is not controlled, you have any medication questions . Past History Medical & Surgical History: (1) Hypertension (2) Acute gastroenteritis (3) Carpal tunnel syndrome (4) Anxiety (5) Back pain (6) DJD (degenerative joint disease), cervical (7) Acute electrocardiogram changes (8) Shortness of breath (9) RAMIREZ (obstructive sleep apnea) (10) History of (11) S/P appendectomy (12) H/O: hysterectomy . "Provider Documentation" section prepared by Jaron Suazo. . VTE Core Measure Inpt VTE Proph given/why not?: Enoxaparin (Lovenox)SQ
[2017-01-26 18:01] VITALS: BP 123/76; PULSE 57; TEMP 36.8; O2SAT 96
[2017-01-26] MEDS ORDERED: AMITRIPTYLINE HCL 10 MG TAB PO SCH (21:00)
== END 2017-01-26 18:15 | disposition home or self-care (01) ==
LOC: C.EDB 18:29 → C.MED 23:46 → ENRESERV 01-26 00:07
PROVIDERS: ADMIT Hospitalist; ATTEND Internal Medicine
DX: R06.02 Shortness of breath (principal); M54.9 Dorsalgia, unspecified; I10 Essential (primary) hypertension; F41.9 Anxiety disorder, unspecified; G47.33 Obstructive sleep apnea (adult) (pediatric); G43.909 Migraine, unspecified, not intractable, without status migrainosus; E66.9 Obesity, unspecified; Z79.899 Other long term (current) drug therapy; Z82.49 Family history of ischemic heart disease and other diseases of the circulatory system; Z83.6 Family history of other diseases of the respiratory system

== ENCOUNTER 2017-09-23 04:28 | Inpatient (IN) | payer BC, OTHER ==
[~2017-09-23] VITALS: Ht 160 cm; Wt 90.8 kg
[2017-09-23] VITALS (9 sets, daily range): BP systolic 108–145; BP diastolic 67–93; PULSE 64–81; TEMP 36.3–37; O2SAT 93–96; Ht 160 cm; Wt 90.8 kg
[~2017-09-23 04:28] MED LIST changes: +IBUP-1050 PO; -TRET0.027 TOP
[2017-09-23] MEDS ORDERED: HYDROmorphone INJ 0.5 MG/0.5 ML SYR IV STA (04:47)
[2017-09-23] MEDS ORDERED: SODIUM CHLORIDE 0.9% 500ML 500 ML IV STA (04:47)
[2017-09-23] MEDS ORDERED: ONDANSETRON INJ 2 MG/ML 2 ML VIAL IV STA (04:47)
[2017-09-23] MEDS ORDERED: ALUMINUM/MAGNESIUM SUSP 30 ML UDC PO STA (04:51)
[2017-09-23] MEDS ORDERED: LIDOCAINE HCL 2% VISC SOLN 20 ML UDC PO STA (04:51)
[2017-09-23 05:05] LABS: BASO % 0.3 %; BASO ABS # 0.03 K/uL (0-0.2); EOS % 0.6 %; EOS ABS # 0.07 K/uL (0-0.5); HEMATOCRIT 43.7 % (37-47); HEMOGLOBIN 14.5 g/dL (12.0-16.0); IG# 0.03 K/uL (0.00-0.02); LYMPH % 13.5 %; LYMPH ABS # 1.52 K/uL (1.2-3.4); MEAN CELL VOLUME 86.4 fL (80-100); MEAN CORPUSCULAR HEMOGLOBIN 28.7 pg (25-34); MEAN CORPUSCULAR HGB CONC 33.2 g/dl (32-36); MEAN PLATELET VOLUME 8.7 fL (7.4-10.4); MONO % 5.1 %; MONO ABS # 0.57 K/uL (0.11-0.59); NEUT % 80.2 %; NEUT ABS # 9.05 K/uL (1.4-6.5); PLATELET COUNT 272 K/uL (130-400); RED CELL DISTRIBUTION WIDTH CV 13.2 % (11.5-14.5); RED CELL DISTRIBUTION WIDTH SD 41.7 fL (36.4-46.3); WHITE BLOOD COUNT 11.27 K/uL (4.8-10.8)
[2017-09-23 05:22] LABS: ALT/SGPT 70 U/L (12-78); AST/SGOT 80 U/L (15-37); BLOOD UREA NITROGEN 18 mg/dl (7-18); CALCIUM 8.2 mg/dl (8.5-10.1); CARBON DIOXIDE 24 mmol/L (21-32); CREATININE 0.86 mg/dl (0.60-1.20); GLUCOSE 165 mg/dl (70-99); LIPASE 97 U/L (73-393); POTASSIUM 3.6 mmol/L (3.5-5.1); SODIUM 139 mmol/L (136-145)
[2017-09-23 05:27] LABS: ALKALINE PHOSPHATASE 100 U/L (45-117); TOTAL PROTEIN 7.5 gm/dl (6.4-8.2)
--- NOTE | 2017-09-23 06:39 | History and Physical ---
History & Physical Date Sep 23, 2017. Chief Complaint back pain and abd pain History of Present Illness The patient is a 56 year old female with complaints of abd and back pain nausea and vomiting- u/s shows mult stones in neck of gallbladder and positive Villalba's sign Past Medical/Surgical History Medical Problems: (1) Anxiety (2) Carpal tunnel syndrome (3) DJD (degenerative joint disease), cervical (4) Hypertension (5) RAMIREZ (obstructive sleep apnea) (6) Shortness of breath Surgical Problems: (1) H/O: hysterectomy (2) History of (3) S/P appendectomy Additional History Hepatic Disease: No Endocrine Disorder: No Kidney Disease: No Hypertension: Yes Bleeding Tendencies: No Infectious Diseases: No Allergies Coded Allergies: Sulfa Antibiotics (Verified Allergy, Intermediate, severe facial swelling , 01/25/17) Lisinopril (Verified Adverse Reaction, Intermediate, cough, 01/25/17) Home Medications Scheduled Amitriptyline Hcl (Elavil), 20 MG PO HS Amlodipine (Norvasc), 5 MG PO DAILY Citalopram Hydrobromide (Citalopram Hydrobromide), 1 TAB PO DAILY Scheduled PRN Ibuprofen (Advil), 200-600 MG PO Q4H PRN for Pain or Fever Lorazepam (Ativan), 1 MG PO HS PRN for Anxiety/Agitation Physical Examination Eyes: normal inspection, sclerae normal Head: atraumatic Neck: supple Respiratory/Chest: no respiratory distress Abdomen / GI: + pertinent finding (distended , tender RUQ) Extremities: normal inspection Diagnosis Biliary colic and chronic cholecystitis Plan of Treatment for laparoscopic cholecystectomy, possible open operation
--- NOTE | 2017-09-23 06:41 | EMERGENCY ROOM VISIT NOTE ---
History First contact with patient: 04:46 Chief Complaint: ABDOMINAL PAIN Stated Complaint: VOMITING,LWR BACK PAIN History of Present Illness The patient is a 56 year old female who presents to the Emergency Room with complaints of upper abdominal pain that radiates to her back described as aching , ranging in severity 7 out of 10 that woke her up out of sleep. Patient states she had a similar episode last time in which she had spaghetti and meatballs for dinner. She had this last night. She still has her gallbladder. Patient states the majority of her pain is in her right upper quadrant and radiates around to her back. Nothing makes it better or worse. She has not tried any of her symptoms. Patient denies chest pain, dyspnea, fever, chills, diarrhea, urinary symptoms. She states she vomited because of the pain. No trauma to the area. Stress echo last year was normal. Her appendix is gone. No history of bowel obstructions. She has been having normal bowel movements. Review of Systems An 10 system review of systems was completed with positives and pertinent negatives listed in the HPI. Past Medical/Surgical History Medical Problems: (1) Anxiety (2) Carpal tunnel syndrome (3) DJD (degenerative joint disease), cervical (4) Hypertension (5) RAMIREZ (obstructive sleep apnea) (6) Shortness of breath Surgical Problems: (1) H/O: hysterectomy (2) History of (3) S/P appendectomy Family History Early CAD BROTHER (30s) Social History Smoking Status: Never Smoker Alcohol Use: none Drug Use: none Marital Status: Housing Status: lives with significant other Occupation Status: employed Current/Historical Medications Scheduled Amitriptyline Hcl (Elavil), 20 MG PO HS Amlodipine (Norvasc), 5 MG PO DAILY Citalopram Hydrobromide (Citalopram Hydrobromide), 1 TAB PO DAILY Scheduled PRN Ibuprofen (Advil), 200-600 MG PO Q4H PRN for Pain or Fever Lorazepam (Ativan), 1 MG PO HS PRN for Anxiety/Agitation Physical Exam Vital Signs Date Time Temp Pulse Resp B/P (MAP) Pulse Ox O2 Delivery O2 Flow Rate FiO2 09/23/17 06:26 76 18 97 09/23/17 06:01 127/47 09/23/17 05:56 64 24 95 09/23/17 05:51 124/70 09/23/17 05:06 63 17 97 09/23/17 05:01 158/80 09/23/17 04:58 63 17 98 09/23/17 04:56 65 09/23/17 04:53 98 Room Air 09/23/17 04:49 134/76 09/23/17 04:38 36.4 61 18 139/72 95 Room Air Physical Exam VITALS: Vitals are noted on the nurse's note and reviewed by myself. Vital signs stable. GENERAL: Pleasant female who appears in pain, in no acute distress, nondiaphoretic, well-developed well-nourished. SKIN: The skin was without rashes, erythema, edema, or bruising. There is no tenting of the skin. Capillary reflex less than 2 seconds. HEAD: Normocephalic atraumatic. EARS: External auditory canals clear, tympanic membranes pearly queen without erythema or effusion bilaterally. EYES: Pupils equal round and reactive to light and accommodation. Conjunctivae without injection, sclerae without icterus. Extraocular movements intact. NOSE: Patent, turbinates without inflammation or discharge. MOUTH: Mucous membranes moist. Pharynx without erythema or exudate. Uvula midline. Airway patent. Tongue does not deviate. NECK: Supple without nuchal rigidity. No lymphadenopathy. No thyromegaly. Cervical spine is nontender. No JVD. HEART: Regular rate and rhythm without murmurs gallops or rubs. LUNGS: Clear to auscultation bilaterally without wheezes, rales or rhonchi. No retractions or accessory muscle use. ABDOMEN: Positive bowel sounds x 4. Normal tympanic percussion. Soft, protuberant, obese, tender to palpation right upper quadrant, no CVA tenderness , without masses or organomegaly. Villalba sign negative. No guarding or rebound tenderness. MUSCULOSKELETAL: No muscle atrophy, erythema, or edema noted. No thoracic or lumbar tenderness. NEURO: Patient was alert and oriented to person place and time. Normal sensation to light and sharp touch. No focal neurological deficits. Medical Decision & Procedures Laboratory Results 09/23/17 04:50 Red Blood Count 5.06, Mean Corpuscular Volume 86.4, Mean Corpuscular Hemoglobin 28.7, Mean Corpuscular Hemoglobin Concent 33.2, Mean Platelet Volume 8.7, Neutrophils (%) (Auto) 80.2, Lymphocytes (%) (Auto) 13.5, Monocytes (%) (Auto) 5.1, Eosinophils (%) (Auto) 0.6, Basophils (%) (Auto) 0.3, Neutrophils # (Auto) 9.05, Lymphocytes # (Auto) 1.52, Monocytes # (Auto) 0.57, Eosinophils # (Auto) 0.07, Basophils # (Auto) 0.03 09/23/17 04:50 Test 09/23/17 04:50 White Blood Count 11.27 K/uL (4.8-10.8) Red Blood Count 5.06 M/uL (4.2-5.4) Hemoglobin 14.5 g/dL (12.0-16.0) Hematocrit 43.7 % (37-47) Mean Corpuscular Volume 86.4 fL (80-100) Mean Corpuscular Hemoglobin 28.7 pg (25-34) Mean Corpuscular Hemoglobin Concent 33.2 g/dl (32-36) Platelet Count 272 K/uL (130-400) Mean Platelet Volume 8.7 fL (7.4-10.4) Neutrophils (%) (Auto) 80.2 % Lymphocytes (%) (Auto) 13.5 % Monocytes (%) (Auto) 5.1 % Eosinophils (%) (Auto) 0.6 % Basophils (%) (Auto) 0.3 % Neutrophils # (Auto) 9.05 K/uL (1.4-6.5) Lymphocytes # (Auto) 1.52 K/uL (1.2-3.4) Monocytes # (Auto) 0.57 K/uL (0.11-0.59) Eosinophils # (Auto) 0.07 K/uL (0-0.5) Basophils # (Auto) 0.03 K/uL (0-0.2) RDW Standard Deviation 41.7 fL (36.4-46.3) RDW Coefficient of Variation 13.2 % (11.5-14.5) Immature Granulocyte % (Auto) 0.3 % Immature Granulocyte # (Auto) 0.03 K/uL (0.00-0.02) Anion Gap 9.0 mmol/L (3-11) Est Creatinine Clear Calc Drug Dose 76.3 ml/min Estimated GFR () 86.3 Estimated GFR (Non- 74.5 BUN/Creatinine Ratio 21.4 (10-20) Calcium Level 8.2 mg/dl (8.5-10.1) Total Bilirubin 0.4 mg/dl (0.2-1) Direct Bilirubin 0.2 mg/dl (0-0.2) Aspartate Amino Transf (AST/SGOT) 80 U/L (15-37) Alanine Aminotransferase (ALT/SGPT) 70 U/L (12-78) Alkaline Phosphatase 100 U/L (45-117) Troponin I < 0.015 ng/ml (0-0.045) Total Protein 7.5 gm/dl (6.4-8.2) Albumin 4.0 gm/dl (3.4-5.0) Lipase 97 U/L (73-393) Medications Administered Medications (Trade) Dose Ordered Sig/Michelle Route Start Time Stop Time Status Last Admin Dose Admin Ondansetron HCl (Zofran Inj) 4 mg NOW STAT IV 09/23/17 04:47 09/23/17 04:49 DC 09/23/17 04:58 4 MG Sodium Chloride 500 ml @ 999 mls/hr Q31M STAT IV 09/23/17 04:47 09/23/17 05:17 DC 09/23/17 04:58 999 MLS/HR Hydromorphone HCl (Dilaudid Inj) 0.5 mg NOW STAT IV 09/23/17 04:47 09/23/17 04:49 DC 09/23/17 05:17 0.5 MG Lidocaine HCl (Viscous Lidocaine 2% Soln) 10 ml NOW STAT PO 09/23/17 04:51 09/23/17 04:52 DC 09/23/17 04:58 10 ML Al Hydroxide/Mg Hydroxide (Maalox Susp) 30 ml NOW STAT PO 09/23/17 04:51 09/23/17 04:52 DC 09/23/17 04:58 30 ML ED Course Prior records/ancillary studies reviewed. Triage Nursing notes reviewed. Additional history obtained from family. The patient's history was concerning for abdominal pain. Differential diagnosis: Etiologies such as diverticulitis, PUD, biliary pathology, UTI, pancreatitis, obstruction, mesenteric ischemia, aortic pathology, infections, inflammatory bowel disease, renal colic, as well as others were entertained. Physical examination findings: As above. ER treatment provided: GI cocktail, Dilaudid, Zofran, IV fluids On reassessment the patient felt better. Diagnostics interpreted by me: ECG: Normal sinus, normal intervals, T-wave inversions in V3 and V4, rate of 65. EKG compared to prior EKG from January 2017 with no acute changes. Impression normal sinus rhythm with persistent T-wave inversions in anterior leads interpreted by myself. The labs revealed negative troponin, mild leukocytosis Imaging studies: Chest x-ray with no acute consolidation, pneumothorax free of my interpretation Ultrasound showing gallstones and sludge concerning for possible cholecystitis per my interpretation and read by radiology Interpretation Summary Name: JEANNETTE CLIFTON Study Date: 01/26/2017 11:32 AM BP: 116/73 mmHg Patient Location: [facility]\S\87\S\1 HR: 64 : 1960 (M/d/yyyy) Gender: Female Height: 63 in Age: 56 yrs Ethnicity: [place] Weight: 193 lb Ordering Physician: Serafin Reid Referring Physician: Self, Referred Performed By: Tracey Flores, [facility] Reason For Study: CHEST PAIN BSA: 1.9 m2 -- Conclusions -- The study was technically adequate. The exercise echocardiographic examination is normal without resting left ventricular wall motion abnormalities or inducible ischemia. The stress EKG response was normal. The heart rate and blood pressure responses to exercise were normal. No symptoms suggestive of angina were induced. No significant valvular heart disease was present on the resting study. Procedure Details ECHOEX, CPT #[id number] ECHO DOPPLER, CPT #[id number] ECHO COLOR FLOW, CPT #[id number] Left Ventricle The left ventricle is normal in size. There is normal left ventricular wall thickness. Left ventricular systolic function is normal. Ejection Fraction = 55-60%. Resting wall motion: Normal. Stress wall motion: Appropriate increase in Left ventricular systolic function and decrease in cavity size. No stress induced segmental wall motion abnormalities. Right Ventricle The right ventricle is normal in size and function. Atria The left atrial size is normal. Right atrial size is normal. No ASD detected; PFO is not assessed. Mitral Valve The mitral valve is normal. There is no mitral valve stenosis. There is trace mitral regurgitation. Tricuspid Valve The tricuspid valve is normal. There is no tricuspid stenosis. There is trace tricuspid regurgitation. Aortic Valve The aortic valve is trileaflet. No hemodynamically significant valvular aortic stenosis. No aortic regurgitation is present. Pulmonic Valve The pulmonic valve is not well visualized. Great Vessels The aortic root is normal size. Pericardium There is no pericardial effusion. There is an echodensity in the pericardial space consistent with pericardial fat. Stress Parameters The baseline EKG reveals sinus rhythm with non specifict T wave changes in the anteroseptal leads. The stress ECG response was normal No arrhythmia were noted with stress. The stress portion of this study was personally supervised by the undersigned interpreting physician. Rest heart rate was '64' BPM. Rest blood pressure was '116/73' Maximum heart rate achieved was 146 bpm. Maximum heart rate was 90 % of maximum age-predicted heart rate. Maximum blood pressure was '163/90' Total exercise time was '05:59' Maximum exercise MET level achieved was '7.00' METS Maximum treadmill speed was '2.50' miles per hour. Maximum treadmill elevation was '12.00'% grade. Left Ventricular Diastolic Function Grade I diastolic dysfunction, (abnormal relaxation pattern). Consultation: A consultation was placed with the surgical PAEliazar and will come in and evaluate the patient . Dr. Kelly came in and evaluated the patient. He will take the patient the OR for cholecystectomy. the case was discussed and diagnostics were reviewed. The patient was evaluated in the ER for further treatment. Exam and history seem consistent with acute cholecystitis. Patient was placed n.p.o. She has had a problem with this before. Negative troponin. Normal EKG. Patient was neurovascularly and neurologically intact. No LFT elevation. Patient was well-appearing.By the evaluation outlined above emergent etiologies such as appendicitis, diverticulitis, PUD, UTI, pancreatitis, obstruction, mesenteric ischemia, aortic pathology, inflammatory bowel disease , renal colic, as well as others were deemed relatively unlikely. The pt informed about the findings as listed above. All questions were answered and pleased with the treatment. Case reviewed with my attending The chart was completed utilizing Image[employer] voice recognition software. Grammatical errors, random word insertions, pronoun errors, and incomplete sentences are an occassional consequence of this system due to software limitations, ambient noise, and hardware issues. Any formal questions or concerns about the content, text, or information contained within the body of this dictation should be directly addressed to the physician title i assistant for clarification. Medical Decision As above Medication Reconcilliation Current Medication List: was personally reviewed by me Blood Pressure Screening Patient's blood pressure: Normal blood pressure Impression Primary Impression: Biliary colic Additional Impression: Cholecystitis Departure Information Dispostion Being Evaluated By Surgeon Condition GOOD Referrals Marvin Rodriguez M.D. (PCP) Patient Instructions My [facility] Problem Qualifiers
[2017-09-23] MEDS ORDERED: PHENYLEPHRINE HCL INJ 10 MG/ML VIAL ONE (06:58)
[2017-09-23] MEDS ORDERED: MIDAZOLAM HCL 1 MG/ML 2ML VIAL ONE (06:58)
[2017-09-23] MEDS ORDERED: FENTANYL CITRATE INJ 50 MCG/1 ML 2 ML VIAL ONE ×2 (06:58)
[2017-09-23] MEDS ORDERED: GLYCOPYRROLATE INJ 0.2 MG/ML VIAL ONE (06:58)
[2017-09-23] MEDS ORDERED: LIDOCAINE HCL 2% 2 ML VIAL (20MG/ML) ONE (06:58)
[2017-09-23] MEDS ORDERED: EpHEDrine SULFATE INJ 50 MG/ML AMP ONE (06:58)
[2017-09-23] MEDS ORDERED: PROPOFOL IV EMULSION 10 MG/ML 20 ML VIAL IV ONE (06:58)
[2017-09-23] MEDS ORDERED: ONDANSETRON INJ 2 MG/ML 2 ML VIAL ONE (06:58)
[2017-09-23] MEDS ORDERED: DEXAMETHASONE SOD INJ 4 MG/ML VIAL ONE ×2 (06:58→10:59)
[2017-09-23] MEDS ORDERED: NEOSTIGMINE METHYLSULFATE 5 MG/5 ML SYR ONE (06:58)
[2017-09-23] MEDS ORDERED: SUCCINYLCHOLINE CHLORIDE 20 MG/ML 10 ML VIAL IV ONE (06:58)
[2017-09-23] MEDS ORDERED: CEFOXITIN IV 2,000 MG in DEXTROSE 5% 50ML 50 ML IV SCH ×2 (07:00→14:00)
[2017-09-23] MEDS ORDERED: BUPIVACAINE 0.5 % 5 MG/1 ML MPF 30ML VIAL ONE (07:18)
[2017-09-23] MEDS ORDERED: CONRAY 60% 50 ML VIAL ONE (07:18)
--- NOTE | 2017-09-23 07:19 | DIAGNOSTIC IMAGING REPORT ---
ULTRASOUND RIGHT UPPER QUADRANT ABDOMEN CLINICAL HISTORY: Right upper quadrant abdominal pain. COMPARISON STUDY: Abdominal radiographs dated 07/14/2015. TECHNIQUE: Real-time, grayscale, and color flow sonography of the right upper quadrant of the abdomen was performed. Images are reviewed in the transverse and longitudinal planes. FINDINGS: Liver: The liver is normal in size and demonstrates heterogeneously increased echotexture consistent with hepatic steatosis. Fatty sparing is seen adjacent to gallbladder fossa. There is no intrahepatic biliary ductal dilatation. The main portal vein is patent. Gallbladder: The gallbladder is mildly distended. There are numerous shadowing calcified gallstones identified. There is no gallbladder wall thickening or pericholecystic fluid. A sonographic Villalba's sign is reportedly present. The common bile duct measures up to 0.4 cm in diameter. Pancreas: Not well visualized due to overlying bowel gas. Right kidney: Survey images of the right kidney demonstrate cortical atrophy. There is no hydronephrosis. No shadowing calculi are identified. Ascites: None. IMPRESSION: 1. Cholelithiasis with an otherwise normal-appearing gallbladder. A sonographic Villalba's sign is reportedly present. Findings are equivocal for acute cholecystitis which is not excluded. Clinical correlation will be essential. Consider follow-up with a nuclear hepatobiliary scan. 2. Hepatic steatosis. Electronically signed by: Buster Pena M.D. 09/23/2017 7:17 AM Dictated Date/Time: 09/23/2017 7:13 AM
--- NOTE | 2017-09-23 07:25 | DIAGNOSTIC IMAGING REPORT ---
CHEST ONE VIEW PORTABLE CLINICAL HISTORY: CHEST PAIN dyspnea COMPARISON STUDY: 01/25/2017 FINDINGS: Mild stable cardiomegaly. Diaphragms smooth. Lungs are considered clear. IMPRESSION: Mild cardiomegaly. No acute process. The above report was generated using voice recognition software. It may contain grammatical, syntax or spelling errors. Electronically signed by: Davy Thrasher M.D. 09/23/2017 7:24 AM Dictated Date/Time: 09/23/2017 7:23 AM
[2017-09-23] MEDS ORDERED: LACTATED RINGER'S 1000ML 1,000 ML IV SCH (08:30)
[2017-09-23] MEDS ORDERED: LORAZEPAM 1 MG TAB PO PRN (08:45)
[2017-09-23] MEDS: CITALOPRAM 20 MG TAB PO SCH (09:00)
[2017-09-23] MEDS ORDERED: AMLODIPINE BESYLATE 5 MG TAB PO SCH ×2 (09:00→21:00)
--- NOTE | 2017-09-23 09:21 | Medical Consult ---
Consultation Date of Consultation: Sep 23, 2017. Attending Physician: Jez Kelly M.D. Reason for Consultation: medical management, pre-op evaluation History of Present Illness Pt is 56 y/o F with PMH HTN, RAMIREZ, anxiety, who presented to ER with complaint of upper abdominal pain and vomiting. Patient reports this morning woke up around 4:00 AM with upper abdominal pain right upper quadrant pain and right back pain with associated nausea and vomiting 4 episodes. Patient reports 8 spaghetti and meatballs and doughnut and a glass of milk around 2 AM. She reports a history in the past of right upper quadrant abdominal pain after eating spaghetti and meatballs. Did not seek medical evaluation at that time. Denies fever/chills, diaphoresis, hematemesis, melena, hematochezia, diarrhea, constipation, ANDERSON, dizziness, syncope, vision changes, neck pain, CP, SOB, orthopnea, palpitations, cough, sore throat, choking, otalgia, rhinorrhea, abdominal pain, paresthesias, weakness, extremity weakness, extremity edema, rashes, dysuria, urinary frequency, hematuria. Hx , appendectomy, hysterectomy. In the ER patient afebrile pulse 70, respiration 16, BP: 125/68, 94-98% on room air. WBC: 11.2. AST: 80. Negative troponin. EKG: Normal sinus rhythm, nonspecific T-wave abnormality. U/S RUQ abdomen: Cholelithiasis, positive Villalba sign, hepatic steatosis. Patient was given Dilaudid, Zofran, GI cocktail. General surgery Dr. Kelly saw patient, and admitted for planned laparoscopic cholecystectomy. History of stress echo: 01/2017: No inducible ischemia, EF: 55-60 percent. No wall motion abnormalities. Past Medical/Surgical History Medical Problems: (1) Acute gastroenteritis Status: Resolved (2) Anxiety Status: Chronic (3) Carpal tunnel syndrome Status: Resolved (4) DJD (degenerative joint disease), cervical Status: Chronic (5) Hypertension Status: Chronic (6) RAMIREZ (obstructive sleep apnea) Status: Chronic (7) Shortness of breath Status: Resolved Surgical Problems: (1) H/O: hysterectomy Status: Chronic (2) History of Status: Chronic (3) History of carpal tunnel surgery of left wrist Status: Resolved (4) History of carpal tunnel surgery of right wrist Status: Resolved (5) S/P appendectomy Status: Chronic Family History Diabetes mellitus Early CAD BROTHER (30s) FH: CAD (coronary artery disease) Social History Smoking Status: Never Smoker Smokeless Tobacco Use: No Alcohol Use: none Drug Use: none Marital Status: Housing Status: lives with significant other Occupation Status: employed Allergies Coded Allergies: Sulfa Antibiotics (Verified Allergy, Intermediate, severe facial swelling , 01/25/17) Lisinopril (Verified Adverse Reaction, Intermediate, cough, 01/25/17) Current Inpatient Medications Current Inpatient Medications Medications (Trade) Dose Ordered Sig/Michelle Route Start Time Stop Time Status Last Admin Dose Admin Cefoxitin Sodium 2000 mg/Dextrose 60 ml @ 100 mls/hr Q6H IV 09/23/17 14:00 10/03/17 13:59 Cefoxitin Sodium 2000 mg/Dextrose 60 ml @ 100 mls/hr TODAY@0700 IV 09/23/17 07:00 09/23/17 10:00 Lactated Ringer's 1,000 ml @ 100 mls/hr Q10H IV 09/23/17 08:30 10/23/17 08:29 09/23/17 08:31 100 MLS/HR Amitriptyline HCl (Elavil Tab) 10 mg HS PO 09/23/17 21:00 10/23/17 20:59 Amlodipine Besylate (Norvasc Tab) 5 mg DAILY PO 09/23/17 09:00 10/23/17 08:59 Citalopram Hydrobromide (celeXA TAB) 20 mg DAILY PO 09/23/17 09:00 10/23/17 08:59 Lorazepam (Ativan Tab) 1 mg HS PRN PO 09/23/17 08:45 10/23/17 08:44 Review of Systems See HPI for pertinent positives & negatives. All other systems reviewed and were otherwise negative Physical Exam Date Time Temp Pulse Resp B/P (MAP) Pulse Ox O2 Delivery O2 Flow Rate FiO2 09/23/17 08:22 37.0 65 18 108/67 (81) 94 Room Air 09/23/17 07:48 37.1 70 16 125/68 94 09/23/17 06:42 70 16 133/75 98 Room Air 09/23/17 06:26 76 18 97 09/23/17 06:01 127/47 09/23/17 05:56 64 24 95 09/23/17 05:51 124/70 09/23/17 05:06 63 17 97 09/23/17 05:01 158/80 09/23/17 04:58 63 17 98 09/23/17 04:56 65 09/23/17 04:53 98 Room Air 09/23/17 04:49 134/76 09/23/17 04:38 36.4 61 18 139/72 95 Room Air General Appearance: WD/WN, no apparent distress Head: normocephalic, atraumatic Eyes: normal inspection, PERRL, EOMI, sclerae normal ENT: hearing grossly normal, pharynx normal, + pertinent finding (mucous membranes moist) Neck: supple, no JVD, trachea midline Respiratory/Chest: lungs clear, normal breath sounds, no respiratory distress Cardiovascular: regular rate, rhythm, no murmur Abdomen/GI: normal bowel sounds, soft, + tenderness (epigastric and RUQ without rebound or guarding) Extremities/Musculoskelatal: normal inspection, normal capillary refill, no pedal edema, normal range of motion Neurologic/Psych: alert, normal mood/affect, oriented x 3 Skin: normal color, warm/dry, + pertinent finding (+2 small escar to RLE, one to L forearm without surrounding erythema or edema,no discharge.) Laboratory Results Last 24 Hours Test 09/23/17 04:50 White Blood Count 11.27 K/uL Red Blood Count 5.06 M/uL Hemoglobin 14.5 g/dL Hematocrit 43.7 % Mean Corpuscular Volume 86.4 fL Mean Corpuscular Hemoglobin 28.7 pg Mean Corpuscular Hemoglobin Concent 33.2 g/dl Platelet Count 272 K/uL Mean Platelet Volume 8.7 fL Neutrophils (%) (Auto) 80.2 % Lymphocytes (%) (Auto) 13.5 % Monocytes (%) (Auto) 5.1 % Eosinophils (%) (Auto) 0.6 % Basophils (%) (Auto) 0.3 % Neutrophils # (Auto) 9.05 K/uL Lymphocytes # (Auto) 1.52 K/uL Monocytes # (Auto) 0.57 K/uL Eosinophils # (Auto) 0.07 K/uL Basophils # (Auto) 0.03 K/uL RDW Standard Deviation 41.7 fL RDW Coefficient of Variation 13.2 % Immature Granulocyte % (Auto) 0.3 % Immature Granulocyte # (Auto) 0.03 K/uL Sodium Level 139 mmol/L Potassium Level 3.6 mmol/L Chloride Level 106 mmol/L Carbon Dioxide Level 24 mmol/L Anion Gap 9.0 mmol/L Blood Urea Nitrogen 18 mg/dl Creatinine 0.86 mg/dl Est Creatinine Clear Calc Drug Dose 76.3 ml/min Estimated GFR () 86.3 Estimated GFR (Non- 74.5 BUN/Creatinine Ratio 21.4 Random Glucose 165 mg/dl Calcium Level 8.2 mg/dl Total Bilirubin 0.4 mg/dl Direct Bilirubin 0.2 mg/dl Aspartate Amino Transf (AST/SGOT) 80 U/L Alanine Aminotransferase (ALT/SGPT) 70 U/L Alkaline Phosphatase 100 U/L Troponin I < 0.015 ng/ml Total Protein 7.5 gm/dl Albumin 4.0 gm/dl Lipase 97 U/L Assessment & Plan CHOLELITHIASIS/ACUTE RUQ ABDOMINAL PAIN Pt with onset RUQ pain this am. U/S RUQ abdomen: Cholelithiasis, positive sonographic Villalba sign. Pt with hx negative stress test in 2017, EF: 55-60% with no wall motion abnormalities. General surgery -Dr Kelly plan to take pt to OR today for laparoscopic cholecystectomy. -pain management per general surgery -DVT prophylaxis per general surgery -incentive spirometry -monitor H&H for acute blood loss anemia HTN stable -continue norvasc ANXIETY -continue citalopram, lorazepam HS prn RAMIREZ -CPAP HS DVT Prophylaxis -SCD per general surgery Disposition admit med/surg Full Code Follows with Dr Rodriguez for routine care Pt was seen with Dr Chappell. See addendum Attending addendum: 56-year-old female status post laparoscopic cholecystectomy Recovered well postop Minimal pain and discomfort at the postsurgical site, Tolerating diet well No fever or chills Continue management as per surgery. History of hypertension: Blood pressure is stable Continue Norvasc Anxiety disorder: Continue outpatient medication of Celexa, lorazepam as needed at at bedtime Isha Chappell MD Additional Copies To Marvin Rodriguez M.D.
[2017-09-23] MEDS ORDERED: PHENYLEPHRINE 100MCG/ML 5ML SYR IV PRN (10:00)
[2017-09-23] MEDS ORDERED: EpHEDrine SULFATE INJ 50 MG/ML AMP IV PRN (10:00)
[2017-09-23] MEDS ORDERED: HYDROmorphone INJ 1 MG/ML SYR IV PRN ×2 (10:00→11:15)
[2017-09-23] MEDS ORDERED: FENTANYL CITRATE INJ 50 MCG/1 ML 2 ML VIAL IV PRN (10:00)
[2017-09-23] MEDS ORDERED: PROMETHAZINE HCL INJ 12.5 MG in SODIUM CHLORIDE 0.9% 50ML 50 ML IV PRN ×2 (10:00→11:30)
[2017-09-23] MEDS ORDERED: ONDANSETRON INJ 2 MG/ML 2 ML VIAL IV PRN ×2 (10:00→11:15)
[2017-09-23] MEDS ORDERED: ATROPINE SULFATE 0.1 MG/ML 5ML SYR IV PRN (10:00)
[2017-09-23 10:37] LABS: PTT PATIENT 24.3 SECONDS (21.0-31.0)
[2017-09-23] MEDS ORDERED: SODIUM CHLORIDE 0.9% INJ 10 ML VIAL ONE (10:58)
--- NOTE | 2017-09-23 11:09 | [facility] Operative Report ---
Operative Report Operative Date Sep 23, 2017. Pre-Operative Diagnosis Biliary colic and chronic cholecystitis Post-Operative Diagnosis Biliary colic and chronic cholecystitis Procedure(s) Performed Laparoscopic Cholecystectomy Surgeon Dr. Jez Kelly Embedded Software Manager Surgeon(s) Rigoberto Malcolm PA-C Estimated Blood Loss 20ml Findings large gallstones , chronic adhesions Specimens A: Gallbladder and contents Drains None Anesthesia Type General Complication(s) none Disposition Recovery Room / PACU I attest to the content of the Intraoperative Record and any orders documented therein. Any exceptions are noted below.
[2017-09-23] MEDS ORDERED: HYDROCODONE/ACETAMIN 5/325MG TAB PO PRN ×2 (11:15)
[2017-09-23] MEDS ORDERED: PROMETHAZINE HCL INJ 25 MG in SODIUM CHLORIDE 0.9% 50ML 50 ML IV PRN (11:15)
[2017-09-23] MEDS ORDERED: HYDROmorphone INJ 0.5 MG/0.5 ML SYR IV PRN (11:15)
--- NOTE | 2017-09-23 11:33 | OPERATIVE REPORT ---
DATE OF OPERATION: 09/23/2017 NAME OF OPERATION: Laparoscopic cholecystectomy. PREOPERATIVE DIAGNOSES: Biliary colic and chronic cholecystitis. POSTOPERATIVE DIAGNOSES: Same. STAFF SURGEON: Dr. Jez Kelly. FACILITY MAINTENANCE TECHNICIAN: Rigoberto Malcolm PA-C ANESTHESIA: General. DESCRIPTION OF PROCEDURE: The patient was brought into the operating room and placed on the operating table in the supine position. Her abdomen was prepped and draped in the usual fashion. Pneumatic stockings and orogastric tube were placed. Using 0.5% plain Marcaine, all incisions were anesthetized. Incision was made above the umbilicus, carrying dissection down to the fascia, placing a Veress needle and producing pneumoperitoneum. The patient was placed in reverse Trendelenburg position and rotated to the left. An 11-mm port was placed at this level and under visualization, three 5-mm ports were placed, 1 cephalad and 2 laterally. Gallbladder was grasped and retracted. It was very distended. It was aspirated of bile, which was thick and sludge like. Dissection was carried out at the harish hepatis, identifying the cystic duct and cystic artery. These were clipped and transected and the gallbladder dissected away from the liver bed. There was scar tissue in the posterior wall. Gallbladder was placed in an Endobag. After appropriate hemostasis and irrigation, the Endobag was removed through the umbilical site. The patient did have large gallstones. The fascia at the umbilicus was closed using interrupted 0 Vicryl suture, subcutaneous tissue reapproximated using 2-0 plain catgut suture and then the skin reapproximated using 5-0 Prolene suture and 4-0 nylon suture. The patient was transferred to recovery room in stable condition. My faculty i on call medical assistant helped with prepping, draping, entering the abdominal cavity, exposure of the gallbladder, removal of the gallbladder and closure of the wounds. I attest to the content of the Intraoperative Record and any orders documented therein. Any exception s are noted below.
[2017-09-23] MEDS ORDERED: HYDR-5688 PO (11:39)
--- NOTE | 2017-09-23 11:47 | Discharge Instructions ---
Discharge Instructions Date of Service Sep 23, 2017. Admission Reason for Admission: Biliary Colic,Cholecystitis Discharge Discharge Diagnosis / Problem: chronic cholecystitis Discharge Goals Goal(s): Decrease discomfort, Improve function, Improve disease control Activity Recommendations Activity Limitations: as noted below Lifting Limitations: no more than 25 pounds Exercise/Sports Limitations: until after follow-up appointment May Resume Sexual Activity: when tolerated Shower/Bathe: tomorrow Driving or Machine Use: resume 3 days after discharge . Instructions / Follow-Up Instructions / Follow-Up SPECIAL CARE INSTRUCTIONS: * Cover incisions and change daily for comfort/drainage. * May use ibuprofen for pain as tolerated. * Expect some swelling and bruising. Call your doctor if: * Temperature above 101 degrees * Pain not relieved by pain medicine ordered * There is increased drainage or redness from any incision * You have any unanswered questions or concerns [phone]. FOLLOW UP VISIT: If not already scheduled, please call the office for a follow-up visit. for next week- some suture removal OFFICE PHONE NUMBER: Dr. Kelly Office Current Hospital Diet Patient's current hospital diet: Regular Diet Discharge Diet Recommended Diet: Regular Diet Procedures Procedures Performed: Laparoscopic Cholecystectomy Pending Studies Studies pending at discharge: no Medical Emergencies . Who to Call and When: Medical Emergencies: If at any time you feel your situation is an emergency, please call 911 immediately. . Non-Emergent Contact Non-Emergency issues call your: Primary Care Provider, Surgeon . "Provider Documentation" section prepared by Jez Kelly. .
--- NOTE | 2017-09-23 12:19 | Anesthesiology Progress Note ---
Anesthesia Post Op Note Date & Time Sep 23, 2017 at 12:19 Vital Signs Pain Intensity: 0 Vital Signs Past 12 Hours Date Time Temp Pulse Resp B/P (MAP) Pulse Ox O2 Delivery O2 Flow Rate FiO2 09/23/17 12:10 36.2 76 16 148/63 99 Nasal Cannula 2 09/23/17 12:00 36.2 79 16 133/82 99 Nasal Cannula 2 09/23/17 11:50 87 16 154/81 98 Nasal Cannula 2 09/23/17 11:40 97 16 164/69 100 Oxymask 10 09/23/17 11:34 36.3 78 16 123/68 100 Oxymask 10 09/23/17 08:22 37.0 65 18 108/67 (81) 94 Room Air 09/23/17 07:48 37.1 70 16 125/68 94 09/23/17 06:42 70 16 133/75 98 Room Air 09/23/17 06:26 76 18 97 09/23/17 06:01 127/47 09/23/17 05:56 64 24 95 09/23/17 05:51 124/70 09/23/17 05:06 63 17 97 09/23/17 05:01 158/80 09/23/17 04:58 63 17 98 09/23/17 04:56 65 09/23/17 04:53 98 Room Air 09/23/17 04:49 134/76 09/23/17 04:38 36.4 61 18 139/72 95 Room Air Notes Mental Status: alert / awake / arousable, participated in evaluation Pt Amnestic to Procedure: Yes Nausea / Vomiting: adequately controlled Pain: adequately controlled Airway Patency, RR, SpO2: stable & adequate BP & HR: stable & adequate Hydration State: stable & adequate Anesthetic Complications: no major complications apparent Pt awake, doing well, no complaints. VSS.
[2017-09-23] MEDS ORDERED: KETOROLAC TROMETHAMINE 15 MG/ML VIAL IV PRN (17:45)
[2017-09-23] MEDS: CEFOXITIN IV 1,000 MG in DEXTROSE 5% 50ML 50 ML IV SCH (17:57)
[2017-09-23] MEDS ORDERED: NURSING DECISION MEDICATION ORDER SCH ×2 (18:15→22:30)
[2017-09-23] MEDS ORDERED: COUGH DROP (SUGAR FREE) LOZ 24 LOZ/1 BOX LOZ PRN (18:15)
[2017-09-23] MEDS ORDERED: NURSING VERBAL MED ORDER ONE ×2 (20:15→23:15)
[2017-09-23] MEDS ORDERED: AMITRIPTYLINE HCL 10 MG TAB PO SCH (21:00)
[2017-09-23] MEDS: DOCUSATE SODIUM 100 MG CAP PO SCH (21:14)
[2017-09-23] MEDS: LACTATED RINGER'S 1000ML 1,000 ML IV SCH ×2 (22:15→23:27)
[2017-09-23] MEDS ORDERED: SODIUM CHLORIDE 0.65% NA SOLN 45 ML (OCEAN) PRN (22:30)
[2017-09-24 00:17] VITALS: BP 95/55; PULSE 53
[2017-09-24] MEDS: CEFOXITIN IV 1,000 MG in DEXTROSE 5% 50ML 50 ML IV SCH ×2 (01:42→10:12)
[2017-09-24 03:46] VITALS: BP 122/73; PULSE 76; TEMP 36.7; O2SAT 97
[2017-09-24 05:27] LABS: HEMATOCRIT 38.1 % (37-47); HEMOGLOBIN 12.5 g/dL (12.0-16.0); MEAN CELL VOLUME 86.6 fL (80-100); MEAN CORPUSCULAR HEMOGLOBIN 28.4 pg (25-34); MEAN CORPUSCULAR HGB CONC 32.8 g/dl (32-36); MEAN PLATELET VOLUME 8.9 fL (7.4-10.4); PLATELET COUNT 245 K/uL (130-400); RED CELL DISTRIBUTION WIDTH CV 13.3 % (11.5-14.5); RED CELL DISTRIBUTION WIDTH SD 42.3 fL (36.4-46.3); WHITE BLOOD COUNT 9.29 K/uL (4.8-10.8)
[2017-09-24 05:49] LABS: ALBUMIN 3.4 gm/dl (3.4-5.0); CALCIUM 8.2 mg/dl (8.5-10.1); CREATININE 0.67 mg/dl (0.60-1.20); POTASSIUM 3.9 mmol/L (3.5-5.1)
[2017-09-24 05:52] LABS: TOTAL PROTEIN 6.6 gm/dl (6.4-8.2)
[2017-09-24 07:30] VITALS: O2SAT 93
[2017-09-24 07:38] VITALS: BP 108/67; PULSE 67; TEMP 36.7; O2SAT 93
[2017-09-24] MEDS: CITALOPRAM 20 MG TAB PO SCH (09:08)
[2017-09-24] MEDS: DOCUSATE SODIUM 100 MG CAP PO SCH (09:09)
[2017-09-24] MEDS: LACTATED RINGER'S 1000ML 1,000 ML IV SCH (11:01)
--- NOTE | 2017-09-24 12:20 | Surgery Progress Note ---
Surgery Progress Note Date of Service Sep 24, 2017. Subjective Post OP Day: 1 (s/p lap cholecystectomy) + feeling well, + pain controlled, + diet, No chest pain, No SOB, No nausea, No vomiting feels slightly bloated Objective Vital Signs: Date Time Temp Pulse Resp B/P (MAP) Pulse Ox O2 Delivery O2 Flow Rate FiO2 09/24/17 07:38 36.7 67 18 108/67 (81) 93 Room Air 09/24/17 07:30 93 Room Air 09/24/17 03:46 36.7 76 16 122/73 (89) 97 Room Air 09/24/17 00:17 53 95/55 (68) 09/23/17 23:40 Room Air 09/23/17 23:37 36.5 73 18 128/80 (96) 94 Room Air 09/23/17 19:32 36.9 79 18 136/73 (94) 93 Room Air 09/23/17 15:27 36.7 81 18 132/77 (95) 95 Room Air 09/23/17 15:15 Room Air 09/23/17 14:30 36.9 81 18 130/81 (97) 95 Nasal Cannula 2.0 09/23/17 13:34 36.3 64 18 126/78 (94) 96 Nasal Cannula 2.0 09/23/17 13:00 36.9 64 16 145/93 (110) 96 Nasal Cannula 2.0 09/23/17 12:30 36.9 67 18 133/82 (99) 96 Nasal Cannula 2.0 09/23/17 12:30 96 Nasal Cannula 2.0 09/23/17 12:30 96 Nasal Cannula 2.0 General Appearance: WD/WN, no apparent distress Head: normocephalic, atraumatic Neck: trachea midline Respiratory/Chest: no respiratory distress, no accessory muscle use Abdomen: soft, + distended (mild distention, soft), + tenderness (minimal tenderness at incision sites) Incision(s): clean, dry (dressings clean and dry) Laboratory Results: Results Past 24 Hours Test 09/24/17 04:49 Range/Units White Blood Count 9.29 4.8-10.8 K/uL Red Blood Count 4.40 4.2-5.4 M/uL Hemoglobin 12.5 12.0-16.0 g/dL Hematocrit 38.1 37-47 % Mean Corpuscular Volume 86.6 80-100 fL Mean Corpuscular Hemoglobin 28.4 25-34 pg Mean Corpuscular Hemoglobin Concent 32.8 32-36 g/dl RDW Standard Deviation 42.3 36.4-46.3 fL RDW Coefficient of Variation 13.3 11.5-14.5 % Platelet Count 245 130-400 K/uL Mean Platelet Volume 8.9 7.4-10.4 fL Sodium Level 139 136-145 mmol/L Potassium Level 3.9 3.5-5.1 mmol/L Chloride Level 106 98-107 mmol/L Carbon Dioxide Level 26 21-32 mmol/L Anion Gap 7.0 3-11 mmol/L Blood Urea Nitrogen 8 7-18 mg/dl Creatinine 0.67 0.60-1.20 mg/dl Est Creatinine Clear Calc Drug Dose 97.9 ml/min Estimated GFR () 112.3 Estimated GFR (Non- 96.9 BUN/Creatinine Ratio 12.1 10-20 Random Glucose 139 70-99 mg/dl Calcium Level 8.2 8.5-10.1 mg/dl Total Bilirubin 0.5 0.2-1 mg/dl Direct Bilirubin 0.1 0-0.2 mg/dl Aspartate Amino Transf (AST/SGOT) 80 15-37 U/L Alanine Aminotransferase (ALT/SGPT) 173 12-78 U/L Alkaline Phosphatase 94 45-117 U/L Total Protein 6.6 6.4-8.2 gm/dl Albumin 3.4 3.4-5.0 gm/dl Globulin 3.2 2.5-4.0 gm/dl Albumin/Globulin Ratio 1.1 0.9-2 Assessment & Plan POD # 1 s/p lap francesca -vitals stable - afebrile post op - tolerating regular diet, no nausea or vomiting - adequate urine output Plan: Discharge home today Discharge instructions reviewed Follow up with Dr. Kelly one week Dr. Lipscomb has seen and examined patient agrees with above
[2017-09-24 12:44] VITALS: BP 108/67; PULSE 67; TEMP 36.7; O2SAT 93
--- NOTE | 2017-09-26 14:57 | Discharge Summary ---
Discharge Summary Date of Service Sep 26, 2017. Discharge Summary Admission Date: Sep 23, 2017 at 07:03 Discharge Date: Sep 24, 2017 Discharge Disposition: Home Primary Diagnosis: chronic cholecystitis Secondary Diagnoses/Problems: Medical Problems: (1) Acute electrocardiogram changes Status: Acute (2) Back pain Status: Acute (3) Biliary colic Status: Acute (4) Cholecystitis Status: Acute (5) Gastroenteritis Status: Acute (6) Rectal bleed Status: Acute Surgical Problems: (1) History of carpal tunnel surgery of left wrist Status: Resolved (2) History of carpal tunnel surgery of right wrist Status: Resolved Procedures: laparoscopic cholecystectomy Consultations: medical team Discharge Instructions Last Recorded Wt (Kilograms): 90.800 Allergies: Coded Allergies: Sulfa Antibiotics (Verified Allergy, Intermediate, severe facial swelling , 01/25/17) Lisinopril (Verified Adverse Reaction, Intermediate, cough, 01/25/17) Special Care: Call your doctor if: * Temperature above 101 degrees * Pain not relieved by pain medicine ordered * There is increased drainage or redness from any incision * You have any unanswered questions or concerns. Avoid all tobacco products. If you need help to stop smoking, call [employer] at . This is a free call. Admission Information Admission HPI: pt adm through ER with abd/back pain, N/V evidence of biliary colic Hospital Course adm to hospital, taken to OR 09/23/17- underwent Lap francesca. Discharged home the following day 09/24/17. Total time spent on discharge = This includes examination of the patient, discharge planning, medication reconciliation, and communication with other providers.
== END 2017-09-24 14:22 | disposition home or self-care (01) | DRG 419 ==
LOC: C.EDB 04:30 → C.MSW 07:03 → ENRESERV 07:26
PROVIDERS: ADMIT Surgery; ATTEND Surgery
PROC: 0FT44ZZ Resection of Gallbladder, Percutaneous Endoscopic Approach (ICD-10-PCS; principal; 2017-09-23 07:15)
DX: K80.44 Calculus of bile duct with chronic cholecystitis without obstruction (principal); I10 Essential (primary) hypertension; G47.33 Obstructive sleep apnea (adult) (pediatric); F41.9 Anxiety disorder, unspecified; Z79.899 Other long term (current) drug therapy; Z88.2 Allergy status to sulfonamides; Z88.8 Allergy status to other drugs, medicaments and biological substances

== ENCOUNTER 2019-02-01 12:30 | Inpatient (IN) ==
--- OUTSIDE RECORDS SUMMARY | 2019-02-01 12:32 | External Medical Summary | Continuity of Care Document ---
:1960 Author Name Ingrid Soto, Provider Address Unavailable Unavailable , Care Team Providers Name Role Phone Unavailable Unavailable Unavailable VICENTE ROSANNA Robles Unavailable Unavailable Unavailable Unavailable Unavailable Problems Cholecystitis (575.10) (K81.9) Cholelithiasis (574.20) (K80.20) Status post laparoscopic cholecystectomy (V45.89) (Z90.49) Asthma (493.90) (J45.909) Hypertension (401.9) (I10) Allergies and Adverse Reactions Lisinopril TABS (Allergy) Sulfa Drugs (Allergy) Medications Amitriptyline HCl - 10 MG Oral Tablet; TAKE 1 TABLET AT BEDT Charles LIMA Start: 14-Oct-2017 Refills: 0 Citalopram Hydrobromide 20 MG Oral Tablet; TAKE 1 TABLET EVAN LY. M.DChanel Start: 14-Oct-2017 Refills: 0 amLODIPine Besylate 10 MG Oral Tablet; TAKE 1/2 TABLET DAILY . Lyle.DChanel Start: 14-Oct-2017 Refills: 0 30 Tablet Bottle Procedures History of cholecystectomy laparoscopic Status: Completed 23-Sep-2017 0:00 History of section Status: Comp leted History of carpal tunnel surgery Status: Completed Immunizations Immunizations not documented Family History Sister Family history of diabetes mellitus (V18.0) (Z83.3) Status: Active half-sister Family history of diabetes mellitus (V18.0) (Z83.3) Status: Active Mother Family history of cardiac disorder (V17.49) (Z82.49) Status: Active Family history of hypertension (V17.49) (Z82.49) Status: Act [place] cousin Family history of malignant neoplasm of breast (V16.3) (Z80. 3) Status: Active Social History - Smoking Status Never smoker Plan of Treatment Planned Observations Planned Goals not documented Results No Known Results Results not documented Encounters Appointment; Jez Kelly M.D. 13-Oct-2017 8:50 Encounter Diagnosis: Problem not documented Appointment; Surg [facility], [facility] 30-Sep-2017 9:30 Encounter Diagnosis: Problem not documented
[2019-02-01] MEDS ORDERED: ACETAMINOPHEN 500 MG TAB PO STA (14:02)
[2019-02-01] MEDS ORDERED: cefTRIAXone SODIUM 2,000 MG in DEXTROSE 5% 50 ML IV STA (14:03)
[2019-02-01 14:09] LABS: Basophils # (auto) 0.03 K/uL (0-0.2); Basophils % (auto) 0.2 %; Hematocrit (blood only) 38.9 % (37-47); Hemoglobin 12.9 g/dL (12.0-16.0); Immature Granulocytes # (auto) 0.05 K/uL (0.00-0.02); Immature Granulocytes % (auto) 0.3 %; Lymphocytes % (auto) 3.8 %; Mean Corpuscular Hgb Conc 33.2 g/dL (32-36); Mean Corpuscular Volume 86.3 fL (80-100); Monocytes # (auto) 1.03 K/uL (0.11-0.59); Monocytes % (auto) 5.6 %; Neutrophils # (auto) 16.47 K/uL (1.4-6.5); Neutrophils % (auto) 90.1 %; Platelet Count 224 K/uL (130-400); RDW Coefficient of Variation 13.3 % (11.5-14.5); RDW Standard Deviation 41.8 fL (36.4-46.3); Red Blood Count 4.51 M/uL (4.2-5.4); White Blood Count 18.28 K/uL (4.8-10.8)
--- NOTE | 2019-02-01 14:21 | XRay Report ---
XR chest 1V portable CLINICAL HISTORY: fever COMPARISON STUDY: 09/23/2017 FINDINGS: The bones soft tissues and hemidiaphragms are normal. The cardiomediastinal silhouette is n ormal. The lungs are clear. The pulmonary vasculature is normal. IMPRESSION: Negative chest. The above report was generated using voice recognition software. It may contain grammatical, syntax or spelling errors. Electronically signed by: Davy Thrasher M.D. 02/01/2019 2:19 PM
[2019-02-01 14:23] LABS: Appearance Urine Clear (Clear); Bacteria Urine Automated 1+ (Negative); Bilirubin Urine Negative (Negative); Blood Urine Negative (Negative); Cast Urine Automated 0 /lpf (0-5); Color Urine Yellow; Epithelial Cell Urine Auto >30 /lpf (0-5); Glucose Urine UA Negative (Negative); Ketones Urine Negative (Negative); Leukocyte Esterase Urine 1+ (Negative); Nitrite Urine Negative (Negative); Protein Urine Negative (Negative); RBC Urine Automated 0-4 /hpf (0-4); Specific Gravity Urine 1.015 (1.000-1.030); Urobilinogen Urine Negative (Negative); pH Urine >= 9.0 (4.5-7.5)
[2019-02-01 14:27] LABS: Carbon Dioxide 25 mmol/L (21-32); Chloride 105 mmol/L (98-107); Potassium 3.7 mmol/L (3.5-5.1); Sodium 137 mmol/L (136-145)
[2019-02-01 14:28] LABS: Alanine Aminotransferase 25 U/L (12-78); Anion Gap 7 (3-11); Aspartate Aminotransferase 9 U/L (15-37); Bilirubin,Total 0.5 mg/dl (0.2-1); Blood Urea Nitrogen 10 mg/dl (7-18); Calcium 8.5 mg/dl (8.5-10.1); Creatinine Clr Calc Pharmacy 83.5 ml/min; Est GFR (African American) 97.3; Est GFR (Non-African American) 83.9; Glucose 124 mg/dl (70-99); Total Protein 7.1 gm/dl (6.4-8.2); Troponin I < 0.015 ng/ml (0-0.045)
[2019-02-01 14:29] LABS: Albumin Level 3.5 gm/dl (3.4-5.0); Globulin 3.6 gm/dl (2.5-4.0)
[2019-02-01 14:30] LABS: Alkaline Phosphatase 86 U/L (45-117)
[2019-02-01] MEDS ORDERED: fentaNYL citrate 100 MCG/2 ML VIAL IV STA (15:01)
[2019-02-01] MEDS ORDERED: KETOROLAC TROMETHAMINE 15 MG/ML VIAL IV STA (15:01)
[2019-02-01 15:06] LABS: Lyme Ab IgG w/WB Rflx Negative (Negative); Lyme Ab IgM w/WB Rflx Negative (Negative)
--- NOTE | 2019-02-01 16:00 | History & Physical Report ---
Date of Service February 01, 2019 Assessment & Plan (1) Cellulitis of left lower extremity: 58 yo F who presents to [facility] ED today after myalgias, chills, generalized aches that started last night. Over the last few days has felt fatigued. She reports last night had sharp shooting pains in b/l arms, legs, and back. She felt off balance and had a fever last night and this morning. She was unaware of rash or cellulitis until she arrived to the ED today and the nurse found her LLE to be erythematous. Denies tick bites, CP, SOB, dizziness, vision changes, abdominal pain, change in urination including dysuria, hematuria, polyuria. In the ED: got Tylenol, Toradol, Fentanyl, Ceftriaxone 2g Febrile 38.1 WBC 18.28, Cr 0.77, BUN 10, Lyme negative CXR: negative, EKG 81 bpm NSR - Blood cultures ordered (ED gave abx prior) - Lactate ordered, pending lactate may need to order another - Antibiotics: Unasyn 3 g q6h , then switch to Augmentin PO - Pain control: Toradol 15 mg IV q6h PRN and tylenol PRN - NSS 1000 mL 80 mls/hr - CBC, BMP in the AM (2) Hypertension: Stable Continue home meds (3) Osteoarthritis: Stable Tylenol PRN (4) Depression: (5) Anxiety: Stable Took Lorazepam last night as thought was having panic attack Continue home meds (6) RAMIREZ (obstructive sleep apnea): CPAP used nightly at home, will continue on admission FULL CODE VTE Prophylaxis: Lovenox Pt follows with Dr. Patel for routine care. Patient seen in coordination with Dr. Craven. See addendum for further details. History of Present Illness Chief Complaint: myalgias, chills Primary Care Provider: Marvin Rodriguez MD 58 yo F with PMHx with HTN, RAMIREZ, GERD, OA, Depression/Anxiety, and Insomnia who presents to [facility] ED today after myalgias, chills, generalized aches that started last night. Over the last few days has felt fatigued. She reports last night had sharp shooting pains in b/l arms, legs, and back. Thought she was having a panic attack so she took lorazepam. She felt off balance and had a fever last night and this morning. She was unaware of rash or cellulitis until she arrived to the ED today and the nurse found her LLE to be erythematous. Denies tick bites, CP, SOB, dizziness, vision changes, abdominal pain, change in urination including dysuria, hematuria, polyuria. In the ED: got Tylenol, Toradol, Fentanyl, Ceftriaxone 2g Febrile 38.1 WBC 18.28, Cr 0.77, BUN 10, Lyme negative CXR: negative, EKG 81 bpm NSR Allergies Allergy/AdvReac Type Severity Reaction Status Date / Time Sulfa (Sulfonamide Allergy Intermediate severe Verified 02/01/19 14:05 Antibiotics) facial swelling lisinopril AdvReac Intermediate cough Verified 02/01/19 14:05 Home Medications Home Medications Medication Instructions Recorded Confirmed Type amitriptyline 10 mg PO HS 02/01/19 02/01/19 History amlodipine 5 mg PO HS 02/01/19 02/01/19 History citalopram 20 mg PO HS 02/01/19 02/01/19 History fluticasone propionate 2 spray INTRANASAL DAILY PRN 02/01/19 02/01/19 History ibuprofen 200 - 600 mg PO Q4H PRN 02/01/19 02/01/19 History lorazepam 1 mg PO HS PRN 02/01/19 02/01/19 History tretinoin 1 applic TOPICAL HS 02/01/19 02/01/19 History Past Med/Surg History Medical History Hypertension (Chronic) Anxiety (Chronic) DJD (degenerative joint disease), cervical (Chronic) RAMIREZ (obstructive sleep apnea) (Chronic) Surgical History History of (Chronic) S/P appendectomy (Chronic) H/O: hysterectomy (Chronic) Family History Other No pertinent family history in first degree relatives Social History Feels Safe at Home: Yes Smoking Status: Never smoker Review of Systems Review of Systems: A total of 10 systems were reviewed and otherwise negative unless noted in the HPI or below: []. Physical Exam Physical Exam: GENERAL: alert, healthy, no distress, well nourished and well developed HEAD: Normocephalic, atraumatic EYES: PERRL, EOMI, Conjunctiva are pink and non-injected, sclera clear EARS: External ears normal, Canals clear, TM's clear with good cone of light NOSE: no purulent discharge, no sinus tenderness, no mucosal erythema or edema OROPHARYNX: no exudate, no erythema, lips, buccal mucosa, and tongue normal and mucous membranes are moist NECK: supple, no adenopathy HEART: regular rate & rhythm, no murmurs and no gallops, no edema LUNGS: clear to auscultation bilaterally, no wheezing, rales or rhonchi ABDOMEN: abdomen soft, non-tender, normal bowel sounds x 4 quadrants, no masses or organomegaly, no rebound or guarding, no CVA tenderness, no bladder distention identified and no bruits MSK: full ROM of neck, back, nontender to palpation but reports pain with movement of neck SKIN: LLE-- 15 cm x 12 cm area of erythema, warmth, tenderness to palpation, no active drainage or bleeding, trace edema b/l LE, neurovascular intact, normal strength, cap refill < 2 sec NEURO: alert & oriented x 3 with fluent speech, no focal motor/sensory deficits Results & Data Vital Signs (Past 12 Hours) Vital Signs Temp Pulse Pulse Resp BP BP Pulse Ox 02/01/19 15:00 83 24 128/57 L 02/01/19 14:45 84 15 02/01/19 14:00 83 16 138/69 97 02/01/19 12:40 38.1 C H 92 H 20 125/77 97 Laboratory Results Short CBC 02/01/19 Range/Units 13:40 WBC 18.28 H (4.8-10.8) K/uL Hgb 12.9 (12.0-16.0) g/dL Hct 38.9 (37-47) % Plt Count 224 (130-400) K/uL BMP 02/01/19 13:40 Sodium 137 Potassium 3.7 Chloride 105 Carbon Dioxide 25 BUN 10 Creatinine 0.77 Glucose 124 H Calcium 8.5 Cardiac Enzymes 02/01/19 Range/Units 13:40 Troponin I < 0.015 (0-0.045) ng/ml Liver Function 02/01/19 Range/Units 13:40 Total Bilirubin 0.5 (0.2-1) mg/dl AST 9 L (15-37) U/L ALT 25 (12-78) U/L Alkaline Phosphatase 86 (45-117) U/L Albumin 3.5 (3.4-5.0) gm/dl Urine 02/01/19 Range/Units 13:50 Urine Color Yellow Urine Appearance Clear (Clear) Urine pH >= 9.0 H (4.5-7.5) Ur Specific [place] 1.015 (1.000-1.030) Urine Protein Negative (Negative) Urine Glucose (UA) Negative (Negative) Diagnostic Findings CXR: negative, no acute cardiopulm findings ECG Rate (beats per minute): 81 Rhythm: normal sinus Supervising Physician Co-Signing Physician Notes Attending addendum: The patient was seen and examined in emergency room She is a 58 yo F with PMHx with HTN, RAMIREZ, GERD, OA, Depression/Anxiety, and Insomnia who presents to [facility] ED today after myalgias, chills, generalized aches that started last night. She denies any significant pain in the left leg which was erythematous with tender on palpation Denies any other symptoms On examination No apparent distress at rest Hemodynamically stable Chest-clear to auscultate bilaterally Heart-S1-S2 regular Abdomen-benign Extremities-trace edema bilateral more on the left, with redness involving the lower part of the leg with a few scratch fields and scabs on his skin and the area was warm and tender to palpate [employer]-alert, awake and oriented x3 Notable labs on admission white count 18,000 Has cellulitis of the left leg Agree with assessment and plan as outlined above by TROY Powers Dr
--- NOTE | 2019-02-01 17:00 | Emergency Department Note ---
Entered by Jez Guzman acting as a scribe for Alyse Angle MD History of Present Illness General Chief complaint: Illness Stated complaint: SOB, ANDERSON, LOSS OF BALANCE, DIZZY, NAUSEA Source: patient History of Present Illness Provider complaint: Generalized pain Onset (ago): day(s) (Yesterday) Location: buttocks and lower extremity Radiation: neck Pain Consistency: + constant Maximum Pain Intensity: 5 Current Pain Intensity: 5 Quality: + sharp and + other (Shooting) Relieved By: + none Associated symptoms: + cough, + fever/chills, + headaches, + nausea/vomiting (No vomiting) and + rash The patient is a 58 year old female who presents to the Emergency Room with complaints of sudden onset constant generalized pain that started yesterday after walking the dog. The patient describes the pain as a sharp shooting sensation that she rates a 5/10. The patient reports that she especially feels the pain in her joints, legs, back, buttocks, neck, and ears. Shortly after, the patient notes she started having tingling in her thighs. She then became nauseous and dizzy causing her to lose her balance, but she did not vomit. The patient also mentioned that she has a rash around her left ankle. Moreover the patient states she has a headache and "does not feel like she is here". She also has a slight cough but notes she has allergies. The patient has been taking 600mg Tylenol for her symptoms. Home Medications Home Medications Medication Instructions Recorded Confirmed Type amitriptyline 10 mg PO HS 02/01/19 02/01/19 History amlodipine 5 mg PO HS 02/01/19 02/01/19 History citalopram 20 mg PO HS 02/01/19 02/01/19 History fluticasone propionate 2 spray INTRANASAL DAILY PRN 02/01/19 02/01/19 History ibuprofen 200 - 600 mg PO Q4H PRN 02/01/19 02/01/19 History lorazepam 1 mg PO HS PRN 02/01/19 02/01/19 History tretinoin 1 applic TOPICAL HS 02/01/19 02/01/19 History amoxicillin-pot clavulanate 1 tab PO BID 7 Days #14 tab 02/03/19 Rx Allergies Allergy/AdvReac Type Severity Reaction Status Date / Time Sulfa (Sulfonamide Allergy Intermediate severe Verified 02/01/19 14:05 Antibiotics) facial swelling lisinopril AdvReac Intermediate cough Verified 02/01/19 14:05 Past Med/Surg History Medical History Hypertension (Chronic) Anxiety (Chronic) DJD (degenerative joint disease), cervical (Chronic) RAMIREZ (obstructive sleep apnea) (Chronic) Surgical History History of (Chronic) S/P appendectomy (Chronic) H/O: hysterectomy (Chronic) Family History Other No pertinent family history in first degree relatives Social History Preferred Language: [place] Beliefs That Will Affect Care: None Current Living Situation: Spouse Other Information That Helps Us Care for You: No Feels Safe at Home: Yes Safety Concerns: Feels Safe At This Time Smoking Status: Never smoker Hx Alcohol Use: Yes Alcohol type: beer and wine Hx Substance Use: No Review of Systems See HPI for pertinent positives & negatives. and A total of 10 systems reviewed and were otherwise negative Physical Exam Vital Signs Vital Signs - 24 hr 02/01/19 12:40 02/01/19 14:00 02/01/19 14:45 Temperature 38.1 C H Temperature Source Oral Sepsis Recent Fever Within 48 Hours Yes Sepsis New/Unexplained Change in Mental Status No Sepsis Action Taken by Nursing No Action Required Pulse Rate 92 H 84 Pulse Rate [Apical] 83 Pulse Rate from SpO2 Sensor Respiratory Rate 20 16 15 Blood Pressure 125/77 Blood Pressure [Right Arm] 138/69 Blood Pressure Mean 93 Blood Pressure Mean [Right Arm] 92 Pulse Oximetry 97 97 Oxygen Delivery Method Room Air 02/01/19 15:00 02/01/19 15:30 02/01/19 15:31 Temperature Temperature Source Sepsis Recent Fever Within 48 Hours Sepsis New/Unexplained Change in Mental Status Sepsis Action Taken by Nursing Pulse Rate 83 73 72 Pulse Rate [Apical] Pulse Rate from SpO2 Sensor 73 72 Respiratory Rate 24 19 16 Blood Pressure 128/57 L 134/70 Blood Pressure [Right Arm] Blood Pressure Mean 80 91 Blood Pressure Mean [Right Arm] Pulse Oximetry 92 93 Oxygen Delivery Method 02/01/19 16:00 02/01/19 16:01 02/01/19 16:30 Temperature Temperature Source Sepsis Recent Fever Within 48 Hours Sepsis New/Unexplained Change in Mental Status Sepsis Action Taken by Nursing Pulse Rate 83 82 79 Pulse Rate [Apical] Pulse Rate from SpO2 Sensor 83 83 77 Respiratory Rate 23 21 31 H Blood Pressure 122/64 133/53 L Blood Pressure [Right Arm] Blood Pressure Mean 83 79 Blood Pressure Mean [Right Arm] Pulse Oximetry 95 96 95 Oxygen Delivery Method Vital signs reviewed. General: Well-appearing 58 year old female, in no significant distress. HEENT: No scleral icterus, PERRLA, neck supple. Atraumatic. No meningeal signs. Cardiovascular: Regular rate and rhythm, no extra sounds. Pulmonary: Clear to auscultation bilaterally, normal work of breathing. Abdomen: Soft, nontender, nondistended, positive bowel sounds. Musculoskeletal: Atraumatic, no peripheral edema. Neurologic: Patient awake alert and oriented x 3, full strength in all 4 extremities. Cranial nerves 2 through 12 grossly intact. Skin: Warm, dry, 15 cm of erythema to left distal, anterior leg, nearly circumferential. Course 1400: Past medical records reviewed. The patient was evaluated in room B04B, and a complete history and physical examination were performed. 1541: I reevaluated the patient and updated her on results. I, also, updated her on treatment plan, and she verbalized agreement and understanding. 1546: I spoke to Indira Hillman PA-C under Dr. Herber Billings. I informed her about the patient's case and they will be accepting her for further evaluation. Consultations Consultation #1: I spoke to Indira Hillman PAC under Dr. Herber Billings. I informed her about the patient's case and they will be accepting her for further evaluation. Time: 15:46 Administered Medications Discontinued Medications Acetaminophen (Tylenol) 1,000 mg PO ONE STA Stop: 02/01/19 14:03 Last Admin: 02/01/19 14:21 Dose: 1,000 mg Documented by: [id number] Acetaminophen (Tylenol) 650 mg PO Q4H PRN PRN Reason: Pain or Fever Stop: 03/03/19 17:33 Last Admin: 02/03/19 09:04 Dose: 650 mg Documented by: [id number] Admin: 02/02/19 19:08 Dose: 650 mg Documented by: [id number] Amitriptyline HCl (Elavil) 10 mg PO [facility] Stop: 03/03/19 20:59 Last Admin: 02/02/19 21:28 Dose: 10 mg Documented by: [id number] Admin: 02/01/19 20:40 Dose: 10 mg Documented by: [id number] Amlodipine Besylate (Norvasc) 5 mg PO [facility] Stop: 03/03/19 20:59 Last Admin: 02/02/19 21:28 Dose: 5 mg Documented by: [id number] Admin: 02/01/19 20:40 Dose: 5 mg Documented by: [id number] Amoxicillin/Clavulanate Potassium (Augmentin 875mg) 1 tab PO BIDM [facility]; Protocol Stop: 02/13/19 16:59 Last Admin: 02/03/19 17:07 Dose: 1 tab Documented by: [id number] Citalopram Hydrobromide (Celexa) 20 mg PO [facility] Stop: 03/03/19 20:59 Last Admin: 02/01/19 20:43 Dose: Not Given Documented by: [id number] Citalopram Hydrobromide (Celexa) 20 mg PO [facility] Stop: 03/04/19 08:59 Last Admin: 02/03/19 09:05 Dose: 20 mg Documented by: [id number] Admin: 02/02/19 09:26 Dose: 20 mg Documented by: [id number] Enoxaparin Sodium (Lovenox) 40 mg SQ Q24H [facility] Stop: 03/03/19 19:29 Last Admin: 02/02/19 19:07 Dose: 40 mg Documented by: [id number] Admin: 02/01/19 20:00 Dose: 40 mg Documented by: [id number] Fentanyl Citrate (Fentanyl Citrate) 50 mcg IV NOW STA Stop: 02/01/19 15:02 Last Admin: 02/01/19 15:16 Dose: 50 mcg Documented by: [id number] Ceftriaxone Sodium 2,000 mg/ (Dextrose) 70 mls @ 100 mls/hr IV NOW STA Stop: 02/01/19 14:44 Last Infusion: 02/01/19 16:05 Dose: 0 mls/hr Documented by: [id number] Admin: 02/01/19 15:16 Dose: 100 mls/hr Documented by: [id number] Ampicillin Sodium/Sulbactam Sodium 3,000 mg/ Sodium Chloride 108 mls @ 200 mls/hr IV Q6H [facility]; Protocol Stop: 02/11/19 17:59 Last Infusion: 02/03/19 12:52 Dose: 0 mls/hr Documented by: [id number] Admin: 02/03/19 12:19 Dose: 200 mls/hr Documented by: [id number] Infusion: 02/03/19 07:02 Dose: 0 mls/hr Documented by: [id number] Admin: 02/03/19 06:07 Dose: 200 mls/hr Documented by: [id number] Infusion: 02/03/19 00:35 Dose: 0 mls/hr Documented by: [id number] Admin: 02/02/19 23:58 Dose: 200 mls/hr Documented by: [id number] Infusion: 02/02/19 18:50 Dose: 0 mls/hr Documented by: [id number] Admin: 02/02/19 17:41 Dose: 200 mls/hr Documented by: [id number] Infusion: 02/02/19 12:22 Dose: 0 mls/hr Documented by: [id number] Admin: 02/02/19 11:42 Dose: 200 mls/hr Documented by: [id number] Infusion: 02/02/19 06:30 Dose: 0 mls/hr Documented by: [id number] Admin: 02/02/19 05:57 Dose: 200 mls/hr Documented by: [id number] Infusion: 02/02/19 00:34 Dose: 0 mls/hr Documented by: [id number] Admin: 02/02/19 00:01 Dose: 200 mls/hr Documented by: [id number] Infusion: 02/01/19 20:02 Dose: 0 mls/hr Documented by: [id number] Admin: 02/01/19 18:51 Dose: 200 mls/hr Documented by: [id number] Sodium Chloride (Nss 1000ml) 1,000 mls @ 80 mls/hr IV .[id number] [facility] Stop: 02/02/19 18:33 Last Infusion: 02/02/19 17:42 Dose: 0 mls/hr Documented by: [id number] Admin: 02/02/19 05:57 Dose: 80 mls/hr Documented by: [id number] Infusion: 02/02/19 05:57 Dose: 80 mls/hr Documented by: [id number] Admin: 02/01/19 18:18 Dose: 80 mls/hr Documented by: [id number] Ketorolac Tromethamine (Toradol) 15 mg IV NOW STA Stop: 02/01/19 15:02 Last Admin: 02/01/19 15:16 Dose: 15 mg Documented by: [id number] Ketorolac Tromethamine (Toradol) 15 mg IV Q6H PRN PRN Reason: Pain Stop: 02/02/19 17:33 Last Admin: 02/02/19 09:33 Dose: 15 mg Documented by: [id number] Admin: 02/02/19 02:54 Dose: 15 mg Documented by: [id number] Ketorolac Tromethamine (Toradol) 30 mg IV NOW ONE Stop: 02/01/19 18:25 Last Admin: 02/01/19 18:42 Dose: 30 mg Documented by: [id number] Medical Decision Making Differential Diagnosis Differential diagnosis includees etiologies such as cellulitis, abscess, MRSA infection, DVT, necrotizing fasciitis, dermatitis, drug eruption, as well as others were entertained. Medical Records Attestation: I reviewed the patient's medical records. Home Medications Current Medication List: was personally reviewed by me Laboratory Data Attestation: I reviewed the patient's lab results. Result diagrams: 02/02/19 06:51 02/02/19 06:51 Lab Results 02/01/19 02/01/19 02/01/19 Range/Units 13:40 13:40 13:40 WBC 18.28 H (4.8-10.8) K/uL RBC 4.51 (4.2-5.4) M/uL Hgb 12.9 (12.0-16.0) g/dL Hct 38.9 (37-47) % MCV 86.3 (80-100) fL MCH 28.6 (25-34) pg MCHC 33.2 (32-36) g/dL RDW Std Deviation 41.8 (36.4-46.3) fL RDW Coeff of Evelin 13.3 (11.5-14.5) % Plt Count 224 (130-400) K/uL MPV 9.0 (7.4-10.4) fL Immature Gran % (Auto) 0.3 % Neut % (Auto) 90.1 % Lymph % (Auto) 3.8 % Simpson % (Auto) 5.6 % Eos % (Auto) 0.0 % Baso % (Auto) 0.2 % Immature Gran # (Auto) 0.05 H (0.00-0.02) K/uL Neut # (Auto) 16.47 H (1.4-6.5) K/uL Lymph # (Auto) 0.70 L (1.2-3.4) K/uL Simpson # (Auto) 1.03 H (0.11-0.59) K/uL Eos # (Auto) 0.00 (0-0.5) K/uL Baso # (Auto) 0.03 (0-0.2) K/uL PT (9.0-12.0) Seconds INR (0.9-1.1) APTT (21.0-31.0) Seconds PTT Ratio Sodium 137 (136-145) mmol/L Potassium 3.7 (3.5-5.1) mmol/L Chloride 105 (98-107) mmol/L Carbon Dioxide 25 (21-32) mmol/L Anion Gap 7 (3-11) BUN 10 (7-18) mg/dl Creatinine 0.77 (0.6-1.2) mg/dl Est Cr Clr Drug Dosing 83.5 ml/min Est GFR ( Amer) 97.3 Est GFR (Non-Af Amer) 83.9 BUN/Creatinine Ratio 13.0 (10-20) Glucose 124 H (70-99) mg/dl Calcium 8.5 (8.5-10.1) mg/dl Total Bilirubin 0.5 (0.2-1) mg/dl AST 9 L (15-37) U/L ALT 25 (12-78) U/L Alkaline Phosphatase 86 (45-117) U/L Troponin I < 0.015 (0-0.045) ng/ml Total Protein 7.1 (6.4-8.2) gm/dl Albumin 3.5 (3.4-5.0) gm/dl Globulin 3.6 (2.5-4.0) gm/dl Albumin/Globulin Ratio 1.0 (0.9-2) Urine Color Urine Appearance (Clear) Urine pH (4.5-7.5) Ur Specific [place] (1.000-1.030) Urine Protein (Negative) Urine Glucose (UA) (Negative) Urine Ketones (Negative) Urine Blood (Negative) Urine Nitrite (Negative) Urine Bilirubin (Negative) Urine Urobilinogen (Negative) Ur Leukocyte Esterase (Negative) Urine WBC (Auto) (0-5) /hpf Urine RBC (Auto) (0-4) /hpf U Hyaline Cast (Auto) (0-5) /lpf U Epithel Cells (Auto) (0-5) /lpf Urine Bacteria (Auto) (Negative) Lyme Disease IgG Ab Negative (Negative) Lyme Disease IgM Ab Negative (Negative) 02/01/19 02/01/19 Range/Units 13:41 13:50 WBC (4.8-10.8) K/uL RBC (4.2-5.4) M/uL Hgb (12.0-16.0) g/dL Hct (37-47) % MCV (80-100) fL MCH (25-34) pg MCHC (32-36) g/dL RDW Std Deviation (36.4-46.3) fL RDW Coeff of Evelin (11.5-14.5) % Plt Count (130-400) K/uL MPV (7.4-10.4) fL Immature Gran % (Auto) % Neut % (Auto) % Lymph % (Auto) % Simpson % (Auto) % Eos % (Auto) % Baso % (Auto) % Immature Gran # (Auto) (0.00-0.02) K/uL Neut # (Auto) (1.4-6.5) K/uL Lymph # (Auto) (1.2-3.4) K/uL Simpson # (Auto) (0.11-0.59) K/uL Eos # (Auto) (0-0.5) K/uL Baso # (Auto) (0-0.2) K/uL PT 12.1 H (9.0-12.0) Seconds INR 1.2 H (0.9-1.1) APTT 28.8 (21.0-31.0) Seconds PTT Ratio 1.1 Sodium (136-145) mmol/L Potassium (3.5-5.1) mmol/L Chloride (98-107) mmol/L Carbon Dioxide (21-32) mmol/L Anion Gap (3-11) BUN (7-18) mg/dl Creatinine (0.6-1.2) mg/dl Est Cr Clr Drug Dosing ml/min Est GFR ( Amer) Est GFR (Non-Af Amer) BUN/Creatinine Ratio (10-20) Glucose (70-99) mg/dl Calcium (8.5-10.1) mg/dl Total Bilirubin (0.2-1) mg/dl AST (15-37) U/L ALT (12-78) U/L Alkaline Phosphatase (45-117) U/L Troponin I (0-0.045) ng/ml Total Protein (6.4-8.2) gm/dl Albumin (3.4-5.0) gm/dl Globulin (2.5-4.0) gm/dl Albumin/Globulin Ratio (0.9-2) Urine Color Yellow Urine Appearance Clear (Clear) Urine pH >= 9.0 H (4.5-7.5) Ur Specific [place] 1.015 (1.000-1.030) Urine Protein Negative (Negative) Urine Glucose (UA) Negative (Negative) Urine Ketones Negative (Negative) Urine Blood Negative (Negative) Urine Nitrite Negative (Negative) Urine Bilirubin Negative (Negative) Urine Urobilinogen Negative (Negative) Ur Leukocyte Esterase 1+ H (Negative) Urine WBC (Auto) 10-30 H (0-5) /hpf Urine RBC (Auto) 0-4 (0-4) /hpf U Hyaline Cast (Auto) 0 (0-5) /lpf U Epithel Cells (Auto) >30 H (0-5) /lpf Urine Bacteria (Auto) 1+ H (Negative) Lyme Disease IgG Ab (Negative) Lyme Disease IgM Ab (Negative) Imaging Data Radiologist's Impression: Radiology results as stated below per my review and the radiologist's interpretation: XR chest 1V portable CLINICAL HISTORY: fever COMPARISON STUDY: 09/23/2017 FINDINGS: The bones soft tissues and hemidiaphragms are normal. The cardiomediastinal silhouette is normal. The lungs are clear. The pulmonary vasculature is normal. IMPRESSION: Negative chest. The above report was generated using voice recognition software. It may contain grammatical, syntax or spelling errors. Electronically signed by: Davy Thrasher M.D. 02/01/2019 2:19 PM ECG Data Attestation: I personally reviewed and interpreted this ECG as follows: Indication: other (fever) Rate (beats per minute): 81 Rhythm: normal sinus Findings: + other (diffuse T wave flattening) and + T-wave inversion (Anterior); no PAC and no PVC Blood Pressure Blood Pressure Findings: Normal blood pressure Blood Pressure Disposition: further management by hospitalist MARIPOSA Narrative This pt was evaluated and appeared to be in no distress. IV access was obtained and lab work was drawn. PT was placed on the electronic device monitor. IVF were initiated and pt was given tylenol for fever. IV toradol was given for pain. Lab work reveals an elevated WBC. Vitals signs have improved. Pt was medicated with 2 gm IV ceftriaxone. Given fever, elevated WBC and LLE cellulitis, pt will be evaluated by the hopsitalist service for further management. Impression & Plan Cellulitis of left lower extremity, Fever, Leukocytosis Discharge Plan Visit Data *Final* Discharge Date/Time: 02/01/19 17:23 Chief Complaint: Illness Stated Complaint: SOB, ANDERSON, LOSS OF BALANCE, DIZZY, NAUSEA ED Provider: Alyse Angel Discharge Problem: Cellulitis of left lower extremity, Fever, Leukocytosis Patient Disposition: Admitted As Inpatient Discharge Instructions Interventions: ED Discharge Assessment Last Done: 02/01/19 17:23 Discharge Problem: Fever Qualifiers: Fever type: unspecified Qualified Code(s): R50.9 - Fever, unspecified Leukocytosis Qualifiers: Leukocytosis type: unspecified Qualified Code(s): D72.829 - Elevated white blood cell count, unspecified The scribe's documentation has been prepared under my direction and personally reviewed by me in its entirety. I confirm that the note above accurately reflects all work, treatment, procedures, and medical decision making performed by me.
[2019-02-01] MEDS ORDERED: FLUTICASONE PROPIONATE NA SPR 16 GM BTL NAE PRN (17:34)
[2019-02-01] MEDS ORDERED: LORazepam 1 MG TAB PO PRN (17:34)
[2019-02-01] MEDS ORDERED: ONDANSETRON INJ 2 MG/ML 2 ML VIAL IV PRN (17:34)
[2019-02-01] MEDS: SODIUM CHLORIDE 0.9% 1000ML 1,000 ML IV SCH (18:18)
[2019-02-01] MEDS ORDERED: KETOROLAC 30 MG/ML VIAL IV ONE (18:24)
[2019-02-01 18:35] LABS: INR 1.2 (0.9-1.1); Partial Thromboplastin Ratio 1.1; Partial Thromboplastin Time 28.8 Seconds (21.0-31.0); Prothrombin Time 12.1 Seconds (9.0-12.0)
[2019-02-01] MEDS: AMPICILLIN/SULBACTAM SOD 3,000 MG in 0.9 % SODIUM CHLORIDE 100 ML IV SCH (18:51)
[2019-02-01] MEDS: ENOXAPARIN INJ 40 MG/0.4 ML SYR SQ SCH (20:00)
[2019-02-01] MEDS: AMLODIPINE BESYLATE 5 MG TAB PO SCH (20:40)
[2019-02-01] MEDS: AMITRIPTYLINE HCL 10 MG TAB PO SCH (20:40)
[2019-02-01] MEDS: CITALOPRAM 20 MG TAB PO SCH ×2 (20:40→20:43)
[2019-02-02] MEDS: AMPICILLIN/SULBACTAM SOD 3,000 MG in 0.9 % SODIUM CHLORIDE 100 ML IV SCH ×5 (00:01→23:58)
[2019-02-02] MEDS: KETOROLAC TROMETHAMINE 15 MG/ML VIAL IV PRN ×2 (02:54→09:33)
[2019-02-02] MEDS: SODIUM CHLORIDE 0.9% 1000ML 1,000 ML IV SCH (05:57)
[2019-02-02 07:49] LABS: BUN Creatinine Ratio 15.7 (10-20); Calcium 7.7 mg/dl (8.5-10.1); Creatinine Clr Calc Pharmacy 101.8 ml/min; Est GFR (Non-African American) 97.5; Potassium 3.6 mmol/L (3.5-5.1)
[2019-02-02 07:59] LABS: Basophils # (auto) 0.03 K/uL (0-0.2); Basophils % (auto) 0.4 %; Eosinophils # (auto) 0.05 K/uL (0-0.5); Eosinophils % (auto) 0.7 %; Hematocrit (blood only) 38.6 % (37-47); Hemoglobin 12.6 g/dL (12.0-16.0); Immature Granulocytes # (auto) 0.01 K/uL (0.00-0.02); Immature Granulocytes % (auto) 0.1 %; Lymphocytes # (auto) 1.17 K/uL (1.2-3.4); Lymphocytes % (auto) 16.2 %; Mean Corpuscular Hgb Conc 32.6 g/dL (32-36); Mean Corpuscular Volume 87.5 fL (80-100); Mean Platelet Volume 8.9 fL (7.4-10.4); Monocytes # (auto) 0.56 K/uL (0.11-0.59); Monocytes % (auto) 7.7 %; Neutrophils # (auto) 5.41 K/uL (1.4-6.5); Neutrophils % (auto) 74.9 %; Platelet Count 192 K/uL (130-400); RDW Coefficient of Variation 13.4 % (11.5-14.5); RDW Standard Deviation 43.5 fL (36.4-46.3); Red Blood Count 4.41 M/uL (4.2-5.4); White Blood Count 7.23 K/uL (4.8-10.8)
[2019-02-02] MEDS: CITALOPRAM 20 MG TAB PO SCH (09:26)
--- NOTE | 2019-02-02 16:23 | Hospitalist Progress Note ---
Date of Service February 02, 2019 Assessment & Plan (1) Cellulitis of left lower extremity: Present on admission with chills, myalgia and LE erythema Elevated WBC on admission with normal lactate Starting on Unasyn IV Blood cx pending Will transition to oral Augmentin ion discharge if blood cx no growth and erythema improves Continue pain control Will d/c IV fluid (2) Hypertension: Continue Amlodipine Stable (3) Osteoarthritis: On toradolol and tylenol Stable (4) Depression: (5) Anxiety: Continue Citalopram On Ativan PRN Stable (6) RAMIREZ (obstructive sleep apnea): Continue CPAP CODE STATUS FULL CODE VTE Prophylaxis: Lovenox Disposition Possible discharge tomorrow Subjective Pt was seen and examined Lying in bed with no distress Pt said that she feels ok She said that the redness in her lower extremity is a little bright today She is very anxious to go home today Denies any pain, fever, palpitation, dizziness and SOB Physical Exam Physical Exam: General- No acute distress Head- atraumatic Eyes- PERRL, EOMI, ENT- oropharynx clear Neck- supple, no JVD Lungs- clear to auscultation Heart- regular rhythm; no murmur Abdomen- normal bowel sounds, soft, nontender Extremities- no calf tenderness, erythema in Left lower extremity Neuro- alert, oriented x 3; PERRL, EOMI; no facial palsy; no dysarthria Skin- warm & dry Results & Data Vital Signs (Past 12 Hours) Vital Signs Temp Pulse Pulse Resp BP Pulse Ox 02/02/19 15:09 36.7 C 73 21 138/80 94 02/02/19 12:00 37.0 C 61 18 134/83 96 02/02/19 08:00 74 02/02/19 07:05 37.2 C 74 18 127/81 95 02/02/19 04:57 37.4 C 76 19 122/71 94
[2019-02-02] MEDS: ENOXAPARIN INJ 40 MG/0.4 ML SYR SQ SCH (19:07)
[2019-02-02] MEDS: ACETAMINOPHEN 325 MG TAB PO PRN (19:08)
[2019-02-02] MEDS: AMLODIPINE BESYLATE 5 MG TAB PO SCH (21:28)
[2019-02-02] MEDS: AMITRIPTYLINE HCL 10 MG TAB PO SCH (21:28)
[2019-02-03] MEDS: AMPICILLIN/SULBACTAM SOD 3,000 MG in 0.9 % SODIUM CHLORIDE 100 ML IV SCH ×2 (06:07→12:19)
[2019-02-03] MEDS: ACETAMINOPHEN 325 MG TAB PO PRN (09:04)
[2019-02-03] MEDS: CITALOPRAM 20 MG TAB PO SCH (09:05)
--- NOTE | 2019-02-03 16:21 | Hospitalist Progress Note ---
Date of Service February 03, 2019 Assessment & Plan (1) Cellulitis of left lower extremity: Present on admission with chills, myalgia and LE erythema Elevated WBC on admission with normal lactate Unasyn IV started on 02/01 Blood cx no growth so far Pt is very anxious to go home Will transition to oral Augmentin on discharge Continue pain control Advised pt if redness worsening or develops any fever to seek medical attention Follow up with PCP (2) Hypertension: Continue Amlodipine Stable (3) Osteoarthritis: On toradol and tylenol Stable (4) Depression: (5) Anxiety: Continue Citalopram On Ativan PRN Stable (6) RAMIREZ (obstructive sleep apnea): Continue CPAP CODE STATUS FULL CODE VTE Prophylaxis: Lovenox Disposition Possible discharge today Follow up with primary care provider Dr. Rodriguez on 02/07 @ 2:45 PM Subjective Pt was seen and examined Lying in bed with no distress Pt said that she feels fine The erythema in her left leg improves alittle She is very anxious to go home today Denies any chest pain, palpitation, dizziness and SOB Physical Exam Physical Exam: General- No acute distress Head- atraumatic Eyes- PERRL, EOMI, ENT- oropharynx clear Neck- supple, no JVD Lungs- clear to auscultation Heart- regular rhythm; no murmur Abdomen- normal bowel sounds, soft, nontender Extremities- no calf tenderness, erythema in Left lower extremity slightly improves Neuro- alert, oriented x 3; PERRL, EOMI; no facial palsy; no dysarthria Skin- warm & dry Results & Data Vital Signs (Past 12 Hours) Vital Signs Temp Pulse Pulse Pulse Resp BP BP 02/03/19 16:00 37.0 C 75 60 18 110/73 118/74 02/03/19 14:20 56 L 02/03/19 08:14 37.0 C 60 18 110/73 02/03/19 07:00 58 L Pulse Ox 02/03/19 16:00 95 02/03/19 14:20 02/03/19 08:14 95 02/03/19 07:00
[2019-02-03] MEDS ORDERED: AMOXICILLIN/CLAVULANATE 875 MG TAB PO SCH (17:00)
--- NOTE | 2019-02-06 08:14 | Discharge Summary ---
Date of Service February 03, 2019 Admission HPI Per Admitting Provider 58 yo F with PMHx with HTN, RAMIREZ, GERD, OA, Depression/Anxiety, and Insomnia who presents to [facility] ED today after myalgias, chills, generalized aches that started last night. Over the last few days has felt fatigued. She reports last night had sharp shooting pains in b/l arms, legs, and back. Thought she was having a panic attack so she took lorazepam. She felt off balance and had a fever last night and this morning. She was unaware of rash or cellulitis until she arrived to the ED today and the nurse found her LLE to be erythematous. Denies tick bites, CP, SOB, dizziness, vision changes, abdominal pain, change in urination including dysuria, hematuria, polyuria. In the ED: got Tylenol, Toradol, Fentanyl, Ceftriaxone 2g Febrile 38.1 WBC 18.28, Cr 0.77, BUN 10, Lyme negative CXR: negative, EKG 81 bpm NSR Admission Exam Per Admitting Provider GENERAL: alert, healthy, no distress, well nourished and well developed HEAD: Normocephalic, atraumatic EYES: PERRL, EOMI, Conjunctiva are pink and non-injected, sclera clear EARS: External ears normal, Canals clear, TM's clear with good cone of light NOSE: no purulent discharge, no sinus tenderness, no mucosal erythema or edema OROPHARYNX: no exudate, no erythema, lips, buccal mucosa, and tongue normal and mucous membranes are moist NECK: supple, no adenopathy HEART: regular rate & rhythm, no murmurs and no gallops, no edema LUNGS: clear to auscultation bilaterally, no wheezing, rales or rhonchi ABDOMEN: abdomen soft, non-tender, normal bowel sounds x 4 quadrants, no masses or organomegaly, no rebound or guarding, no CVA tenderness, no bladder distention identified and no bruits MSK: full ROM of neck, back, nontender to palpation but reports pain with movement of neck SKIN: LLE-- 15 cm x 12 cm area of erythema, warmth, tenderness to palpation, no active drainage or bleeding, trace edema b/l LE, neurovascular intact, normal strength, cap refill < 2 sec NEURO: alert & oriented x 3 with fluent speech, no focal motor/sensory deficits Principal Diagnosis Cellulitis of left lower extremity Hypertension Osteoarthritis Depression Anxiety RAMIREZ (obstructive sleep apnea) Discharge Exam General- No acute distress Head- atraumatic Eyes- PERRL, EOMI, ENT- oropharynx clear Neck- supple, no JVD Lungs- clear to auscultation Heart- regular rhythm; no murmur Abdomen- normal bowel sounds, soft, nontender Extremities- no calf tenderness, erythema in Left lower extremity slightly improves Neuro- alert, oriented x 3; PERRL, EOMI; no facial palsy; no dysarthria Skin- warm & dry Discharge Data Allergies Allergy/AdvReac Type Severity Reaction Status Date / Time Sulfa (Sulfonamide Allergy Intermediate severe Verified 02/01/19 14:05 Antibiotics) facial swelling lisinopril AdvReac Intermediate cough Verified 02/01/19 14:05 Consultations 02/01/19 15:46 ED Decision to Admit Stat Ordered Studies XR chest 1V portable CLINICAL HISTORY: fever COMPARISON STUDY: 09/23/2017 FINDINGS: The bones soft tissues and hemidiaphragms are normal. The cardiomediastinal silhouette is normal. The lungs are clear. The pulmonary vasculature is normal. IMPRESSION: Negative chest. The above report was generated using voice recognition software. It may contain grammatical, syntax or spelling errors. Electronically signed by: Davy Thrasher M.D. 02/01/2019 2:19 PM Dictated: 02/01/19 1418 Transcribed: 02/01/19 1418 Hospital Course (1) Cellulitis of left lower extremity: Present on admission with chills, myalgia and LE erythema Elevated WBC on admission with normal lactate Unasyn IV started on 02/01 Blood cx no growth so far Pt is very anxious to go home Will transition to oral Augmentin on discharge Continue pain control Advised pt if redness worsening or develops any fever to seek medical attention Follow up with PCP (2) Hypertension: Continue Amlodipine Stable (3) Osteoarthritis: On toradol and tylenol Stable (4) Depression: (5) Anxiety: Continue Citalopram On Ativan PRN Stable (6) RAMIREZ (obstructive sleep apnea): Continue CPAP CODE STATUS FULL CODE VTE Prophylaxis: Lovenox Disposition Possible discharge today Follow up with primary care provider Dr. Rodriguez on 02/07 @ 2:45 PM Total Time Total Time Spent Total Time Spent (In Minutes): 35 minutes Total Time Includes: Examination of the Patient, Discharge Planning, Medication Reconciliation, Communication With Other Providers and Other Discharge Plan Discharge Items Patient Disposition: Home - Self-Care Reason For Visit: CELLULITIS LLE Discharge Diagnosis: Cellulitis of left lower extremity Hypertension Osteoarthritis Depression Anxiety RAMIREZ (obstructive sleep apnea) Discharge Goals: Decrease discomfort, Improve disease control, Improve function and Improve nutritional status Activity: Resume your previous activity Activity Comment: As tolerated Non-emergency contact: Primary Care Provider Call non-emergency contact if: you have any medication questions, your symptoms worsen and your temperature is above 101 Follow-up/Referrals: Marvin Rodriguez MD [Primary Care Provider] - Diet: Heart Healthy Addtl Provider Instructions: Follow up with your primary care provider Dr. Rodriguez on 02/07 @ 2:45 PM Complete course of antibiotic Seek medical attention if you develop any fever or if redness in your left leg worsening Prescriptions: New amoxicillin-pot clavulanate 875-125 mg Tablet 1 tab PO BID 7 Days Qty: 14 RF: 0 Continued amlodipine 5 mg Tablet 5 mg PO HS RF: 0 citalopram 20 mg Tablet 20 mg PO HS RF: 0 amitriptyline 10 mg Tablet 10 mg PO HS RF: 0 ibuprofen 200 mg Tablet 200 - 600 mg PO Q4H PRN (Reason: Pain) RF: 0 lorazepam 1 mg Tablet 1 mg PO HS PRN (Reason: Anxiety) RF: 0 tretinoin 0.025 % Cream 1 applic TOPICAL HS RF: 0 fluticasone propionate 50 mcg/actuation [place],Suspension 2 spray INTRANASAL DAILY PRN (Reason: Nasal Congestion) RF: 0 Stand-Alone Forms: [facility] Discharge Orders: Discharge Order (Routine); Ordered 02/03/19 Ordered By: Jodi Acharya Admission Data Admit Date/Time: 02/01/19 16:27 Attending Provider: Jodi Acharya Admit Provider: Shameka Craven Primary Care Provider: Marvin Rodriguez Other Providers: Shameka Craven Service: Telemetry Medical Other Interventions: Discharge Summary Assessment (RN) Last Done: 02/03/19 17:14 DC Date/Time DO NOT enter until pt leaves facility: 02/03/19 18:00
== END 2019-02-03 18:00 | disposition home or self-care (01) | DRG 603 ==
LOC: ED 12:30 → 2N 16:27 → SUATTDRO 16:27 → 2N 17:23
DX: I10 Essential (primary) hypertension; L03.116 Cellulitis of left lower limb; F32.9 Major depressive disorder, single episode, unspecified; G47.33 Obstructive sleep apnea (adult) (pediatric)

== ENCOUNTER 2022-06-25 08:55 | Observation (INO) ==
[2022-06-25] MEDS ORDERED: SODIUM CHLORIDE 0.9% 1000ML 1,000 ML IV ONE ×2 (10:46→14:06)
[2022-06-25 10:57] LABS: Basophils # (auto) 0.03 K/uL (0-0.2); Basophils % (auto) 0.5 %; Eosinophils # (auto) 0.03 K/uL (0-0.50); Eosinophils % (auto) 0.5 %; Hematocrit (blood only) 38.4 % (34.1-44.9); Hemoglobin 12.8 g/dl (12.0-16.0); Immature Granulocytes # (auto) 0.01 K/uL (0.00-0.02); Immature Granulocytes % (auto) 0.2 %; Lymphocytes # (auto) 0.42 K/uL (1.2-3.4); Lymphocytes % (auto) 6.9 %; Mean Corpuscular Hemoglobin 28.8 pg (25.0-34.0); Mean Corpuscular Hgb Conc 33.3 g/dL (32.0-36.0); Mean Corpuscular Volume 86.3 fL (80.0-100.0); Mean Platelet Volume 9.1 fL (9.4-12.3); Monocytes # (auto) 0.71 K/uL (0.24-0.82); Monocytes % (auto) 11.7 %; Neutrophils # (auto) 4.88 K/uL (1.4-6.5); Neutrophils % (auto) 80.2 %; Platelet Count 215 K/uL (130-400); RDW Standard Deviation 40.8 fL (36.4-46.3); Red Blood Count 4.45 M/uL (3.93-5.22); White Blood Count 6.08 K/ul (4.8-10.8)
--- NOTE | 2022-06-25 11:13 | Emergency Department Note ---
Impression & Plan Influenza A, Cough ED Provider Note HISTORY OF PRESENT ILLNESS: Patient is a 61-year-old female presenting with cough. She states that she has been coughing for the last 4 days. Reports the cough is productive of clear sputum. Reports low-grade fevers at home. She reports that 1 week ago she went to a hockey game and someone she was sitting near tested positive for COVID. S he has not tested herself in the last week. Reports feeling generally unwell and presented to her primary doctor's office, who referred her to the emergency department for further evaluation. Patient denies any significant chest pain or shortness of breath. She is complaining of a slight headache on arrival to the ER. She reports she has 2 aneurysms intracranially that were going to be surgically repaired next week in [place]. ROS: Constitutional: No chills, or weakness +fever Skin: No rash or diaphoresis HENT: No headaches or congestion Eyes: No vision changes Cardio: No chest pain, palpitations or leg swelling Respiratory: No wheezing or shortness of breath +cough GI: No nausea, vomiting, diarrhea, constipation : No dysuria, polyuria MSK: No joint or back pain Neuro: No loss of sensation, confusion, focal deficits, numbness, tingling Psychiatric: No mood changes PHYSICAL EXAM: Constitutional: Patient appears in no acute distress. HENT: Head: Normocephalic and atraumatic. Eyes: EOMI, PERRL Mouth/Throat: Mucous membranes moist. Neck: Trachea midline. Neck supple. Cardiovascular: RRR, No murmurs, rubs or gallops. Intact distal pulses. Pulmonary/Chest: No respiratory distress. Breath sounds clear and equal bilaterally. No wheezes or rales. Abdominal: BS +. Abdomen soft, no tenderness, rebound or guarding. Back: No midline spinal tenderness, no paraspinal tenderness, no CVA tenderness. Musculoskeletal: No edema, tenderness or deformity noted. Skin: Warm and dry. No rash, erythema, pallor or cyanosis Psychiatric: Appropriate mood and affect for situation. Neurological: Alert and keenly responsive. CN II-XII grossly intact, moving all extremities equally and fully. MDM: - Vitals signs showed fever. Given 1g IV tylenol. - EKG [] - Laboratory workup showed normal WBC; stable electrolytes other than hypocalcem ia (Ca 8.4); elevated BNP (118); normal troponin; normal procal - UA negative for bacteria. - CXR negative for acute cardiopulmonary pathology. - Given patient's headache in the setting of known aneurysms, CT head and CTA performed to rule out aneurysmal complication. CT imaging grossly unremarkable. - During stay in ER, patient's saturations dropped to 89% on room air. She was started on 2L NC with improvement in saturations. - Hospitalist consulted for admission. - Patient admitted to hospitalist service for further evaluation and management. ASSESSMENT AND PLAN: Diagnosis: influenza A infection; cough; shortness of breath; headache Plan: admit Past Med/Surg History Medical History Anxiety Depression DJD (degenerative joint disease), cervical GERD (gastroesophageal reflux disease) Hypertension RAMIREZ (obstructive sleep apnea) Osteoarthritis Surgical History H/O: hysterectomy History of S/P appendectomy Family History Other No pertinent family history in first degree relatives Social History Smoking Status: Never smoker Hx Alcohol Use: Yes Alcohol type: beer and wine Hx Substance Use: No Preferred Language: Colombian Beliefs That Will Affect Care: None Current Living Situation: Spouse Feels Safe at Home: Yes Assistive Devices: Glasses Allergies Allergies Allergy/AdvReac Type Severity Reaction Status Date / Time Sulfa (Sulfonamide Allergy Intermediate severe Verified 06/25/22 10:19 Antibiotics) facial swelling lisinopril AdvReac Intermediate cough Verified 06/25/22 10:19 Home Meds Home Medications Medication Instructions Recorded Confirmed amitriptyline 10 mg tablet 10 mg PO HS 02/01/19 06/25/22 amlodipine 5 mg tablet 5 mg PO HS 02/01/19 06/25/22 fluticasone propionate 50 2 spray intranasal DAILY PRN Nasal 02/01/19 06/25/22 mcg/actuation nasal Congestion spray,suspension lorazepam 1 mg tablet 1 mg PO HS PRN Anxiety 02/01/19 06/25/22 citalopram 40 mg tablet 40 mg PO HS 06/27/20 06/25/22 rosuvastatin 5 mg tablet 5 mg PO DAILY 06/25/22 06/25/22 ticagrelor 90 mg tablet (Brilinta) 90 mg PO BID 06/25/22 06/25/22 Previous Rx's Medication Instructions Recorded oxycodone-acetaminophen 5 mg-325 1 - 2 tab PO Q6H PRN pain #15 tabs 06/27/20 mg tablet (Percocet) Results & Data (ED) Vital Signs Vital Signs - 24 hr 06/25/22 09:07 06/25/22 08:56 06/25/22 10:56 Temperature 38.8 C H Temperature Source Temporal Artery Scan Pulse Rate 84 Pulse Rate [Apical] 83 85 Respiratory Rate 20 20 18 Respiratory Effort / Characteristics Non-Labored Non-Labored Spontaneous Non-Labored Spontaneous Respiratory Depth Normal Normal Normal Respiratory Pattern Regular Regular Regular Blood Pressure 124/80 Blood Pressure [Right Arm] 135/77 120/71 Blood Pressure Mean 94 Blood Pressure Mean [Right Arm] 96 87 Blood Pressure Position Sitting Blood Pressure Position [Right Arm] Sitting Sitting Pulse Oximetry 91 91 93 Oxygen Delivery Method Room Air Room Air Room Air Oxygen Flow Rate Sepsis Recent Fever Within 48 Hours Yes Sepsis New/Unexplained Change in Mental Status No Sepsis Action Taken by Nursing No Action Required 06/25/22 14:06 Temperature 38.1 C H Temperature Source Oral Pulse Rate Pulse Rate [Apical] 64 Respiratory Rate 18 Respiratory Effort / Characteristics Non-Labored Spontaneous Respiratory Depth Normal Respiratory Pattern Regular Blood Pressure Blood Pressure [Right Arm] 123/67 Blood Pressure Mean Blood Pressure Mean [Right Arm] 85 Blood Pressure Position Blood Pressure Position [Right Arm] Sitting Pulse Oximetry 93 Oxygen Delivery Method Nasal Cannula Oxygen Flow Rate 2 Sepsis Recent Fever Within 48 Hours Sepsis New/Unexplained Change in Mental Status Sepsis Action Taken by Nursing Laboratory Data Result diagrams: 06/25/22 10:25 06/25/22 10:25 Lab Results 06/25/22 06/25/22 06/25/22 Range/Units 10:25 10:25 10:25 WBC 6.08 (4.8-10.8) K/ul RBC 4.45 (3.93-5.22) M/uL Hgb 12.8 (12.0-16.0) g/dl Hct 38.4 (34.1-44.9) % MCV 86.3 (80.0-100.0) fL MCH 28.8 (25.0-34.0) pg MCHC 33.3 (32.0-36.0) g/dL RDW Std Deviation 40.8 (36.4-46.3) fL RDW Coeff of Evelin 13.0 (11.5-14.5) % Plt Count 215 (130-400) K/uL MPV 9.1 L (9.4-12.3) fL Immature Gran % (Auto) 0.2 % Neut % (Auto) 80.2 % Lymph % (Auto) 6.9 % Grimes % (Auto) 11.7 % Eos % (Auto) 0.5 % Baso % (Auto) 0.5 % Neut # (Auto) 4.88 (1.4-6.5) K/uL Lymph # (Auto) 0.42 L (1.2-3.4) K/uL [place]imes # (Auto) 0.71 (0.24-0.82) K/uL Eos # (Auto) 0.03 (0-0.50) K/uL Baso # (Auto) 0.03 (0-0.2) K/uL Immature Gran # (Auto) 0.01 (0.00-0.02) K/uL Sodium 138 (136-145) mmol/L Potassium 3.8 (3.5-5.1) mmol/L Chloride 104 (98-107) mmol/L Carbon Dioxide 27 (21-32) mmol/L Anion Gap 7 (3-11) BUN 18 (6-23) mg/dl Creatinine 0.72 (0.6-1.2) mg/dl Est Cr Clr Drug Dosing Not Reportable Est GFR ( Amer) 103.3 ml/min Est GFR (Non-Af Amer) 89.1 ml/min BUN/Creatinine Ratio 25.0 H (10-20) Glucose 143 H (70-99(Fasting)) mg/dl Calcium 8.4 L (8.5-10.1) mg/dl Total Bilirubin 0.4 (0.2-1.0) mg/dl AST 39 (13-39) U/L ALT 44 (7-52) U/L Alkaline Phosphatase 71 (34-104) U/L Troponin I High Sens 5.9 (0-14) pg/ml B-Natriuretic Peptide (0-100) pg/ml Total Protein 6.9 (6.0-8.3) gm/dl Albumin 4.1 (3.4-5.0) gm/dl Globulin 2.8 (2.5-4.0) gm/dl Albumin/Globulin Ratio 1.5 (0.9-2) Procalcitonin 0.05 (0-0.5) ng/ml Urine Color Urine Appearance (Clear) Urine pH (4.5-7.5) Ur Specific Una (1.000-1.030) Urine Protein (Negative) Urine Glucose (UA) (Negative) Urine Ketones (Negative) Urine Blood (Negative) Urine Nitrite (Negative) Urine Bilirubin (Negative) Urine Urobilinogen (Negative) Ur Leukocyte Esterase (Negative) Urine WBC (Auto) (0-5) /hpf Urine RBC (Auto) (0-4) /hpf U Hyaline Cast (Auto) (0-5) /lpf U Epithel Cells (Auto) (0-5) /lpf Urine Bacteria (Auto) (Negative) Calcium Oxalate Crystal (None Prsent) Urine Yeast SARS-CoV-2 (PCR) (Negative) Influenza Type A (PCR) (Neg) Influenza Type B (PCR) (Neg) RSV (RT-PCR) (Neg) 06/25/22 06/25/22 06/25/22 Range/Units 11:04 11:04 11:14 WBC (4.8-10.8) K/ul RBC (3.93-5.22) M/uL Hgb (12.0-16.0) g/dl Hct (34.1-44.9) % MCV (80.0-100.0) fL MCH (25.0-34.0) pg MCHC (32.0-36.0) g/dL RDW Std Deviation (36.4-46.3) fL RDW Coeff of Evelin (11.5-14.5) % Plt Count (130-400) K/uL MPV (9.4-12.3) fL Immature Gran % (Auto) % Neut % (Auto) % Lymph % (Auto) % [place] % (Auto) % Eos % (Auto) % Baso % (Auto) % Neut # (Auto) (1.4-6.5) K/uL Lymph # (Auto) (1.2-3.4) K/uL [place] # (Auto) (0.24-0.82) K/uL Eos # (Auto) (0-0.50) K/uL Baso # (Auto) (0-0.2) K/uL Immature Gran # (Auto) (0.00-0.02) K/uL Sodium (136-145) mmol/L Potassium (3.5-5.1) mmol/L Chloride (98-107) mmol/L Carbon Dioxide (21-32) mmol/L Anion Gap (3-11) BUN (6-23) mg/dl Creatinine (0.6-1.2) mg/dl Est Cr Clr Drug Dosing Est GFR ( Amer) ml/min Est GFR (Non-Af Amer) ml/min BUN/Creatinine Ratio (10-20) Glucose (70-99(Fasting)) mg/dl Calcium (8.5-10.1) mg/dl Total Bilirubin (0.2-1.0) mg/dl AST (13-39) U/L ALT (7-52) U/L Alkaline Phosphatase (34-104) U/L Troponin I High Sens (0-14) pg/ml B-Natriuretic Peptide 118 H (0-100) pg/ml Total Protein (6.0-8.3) gm/dl Albumin (3.4-5.0) gm/dl Globulin (2.5-4.0) gm/dl Albumin/Globulin Ratio (0.9-2) Procalcitonin (0-0.5) ng/ml Urine Color Dark Yellow Urine Appearance Cloudy A (Clear) Urine pH 5.0 (4.5-7.5) Ur Specific Una 1.030 (1.000-1.030) Urine Protein Trace H (Negative) Urine Glucose (UA) Negative (Negative) Urine Ketones Trace H (Negative) Urine Blood Trace H (Negative) Urine Nitrite Negative (Negative) Urine Bilirubin Negative (Negative) Urine Urobilinogen Negative (Negative) Ur Leukocyte Esterase 1+ H (Negative) Urine WBC (Auto) 1-5 (0-5) /hpf Urine RBC (Auto) 0-4 (0-4) /hpf U Hyaline Cast (Auto) 1-5 (0-5) /lpf U Epithel Cells (Auto) >30 H (0-5) /lpf Urine Bacteria (Auto) Negative (Negative) Calcium Oxalate Crystal Present A (None Prsent) Urine Yeast Not Reportable SARS-CoV-2 (PCR) NEGATIVE (Negative) Influenza Type A (PCR) Positive A* (Neg) Influenza Type B (PCR) Negative (Neg) RSV (RT-PCR) Negative (Neg) Administered Medications Discontinued Medications Diphenhydramine HCl (Diphenhydramine 50 Mg/Ml Vial) 25 mg IV NOW STA Stop: 06/25/22 14:07 Last Admin: 06/25/22 14:58 Dose: 25 mg Documented By: DAVID Sodium Chloride (Nss 1000ml) 1,000 mls @ 999 mls/hr IV .Q1H1M ONE Stop: 06/25/22 11:46 Last Infusion: 06/25/22 12:15 Dose: 0 mls/hr Documented By: Admin: 06/25/22 11:03 Dose: 999 mls/hr Documented By: DAVID Acetaminophen (Ofirmev) 1,000 mg in 100 mls @ 400 mls/hr IV NOW STA Stop: 06/25/22 12:32 Last Infusion: 06/25/22 13:12 Dose: 0 mls/hr Documented By: Admin: 06/25/22 12:32 Dose: 400 mls/hr Documented By: DAVID Sodium Chloride (Nss 1000ml) 1,000 mls @ 999 mls/hr IV .Q1H1M ONE Stop: 06/25/22 15:06 Last Admin: 06/25/22 14:58 Dose: 999 mls/hr Documented By: DAVID Prochlorperazine (Compazine) 1 mls @ 1 mls/min IV ONE ONE Stop: 06/25/22 14:07 Last Admin: 06/25/22 14:59 Dose: 1 mls/min Documented By: DAVID Ioversol (Optiray 320 500ml) 120 ml IV ONCE ONE Stop: 06/25/22 13:50 Last Admin: 06/25/22 13:49 Dose: 120 ml Documented By: MIN Imaging Data Radiologist's Impression: Chest X-Ray 06/25/22 10:34 XR chest 1V portable CLINICAL HISTORY: Cough. COMPARISON STUDY: Chest radiograph February 01, 2019. FINDINGS: Lung volumes are normal. Lungs are clear. There is no pneumothorax or pleural effusion. Mild cardiomegaly. Mediastinal contours are normal. There is no evidence for pulmonary edema. IMPRESSION: No acute cardiopulmonary findings. ACT 112: Negative or not required by law. Electronically signed by: Geovany Mc M.D. 06/25/2022 11:54 AM Head CTA 06/25/22 12:19 CT head/brain wo con, CT angio head w con CLINICAL HISTORY: 61 years-old Female with headache; hx of aneurysms. Acute headache in a patient with history of aneurysms TECHNIQUE: Multiple axial CT images of the head were obtained without contrast. CTA of the head was also obtained following the intravenous administration of 120 mL Optiray 320. 3-D coronal and sagittal MIPS were obtained from the axial data set and were submitted for review. All measurements were obtained according to NASCET criteria. A dose lowering technique was utilized adhering to the principles of ALARA. CT DOSE: 719.35 mGy.cm COMPARISON: None. FINDINGS: CT HEAD: No acute intracranial hemorrhage, midline shift, intracranial mass, hydrocephalus, territorial ischemia or abnormal extra-axial collection. The calvarium is intact. Mild rightward bowing and spurring of the nasal septum. The paranasal sinuses, mastoid air cells, and middle ear cavities are clear. CTA: The imaged distal internal carotid arteries are patent. The middle and anterior cerebral arteries are patent. The distal vertebral arteries are within normal limits. The basilar and posterior cerebral arteries are patent. There is no aneurysm, dissection, high-grade stenosis or arterial occlusion. The cerebral venous sinuses are patent. There is no abnormal intracranial enhancement. IMPRESSION: 1. No acute intracranial abnormality. 2. Unremarkable CTA of the head. ACT 112: Negative or not required by law. The above report was generated using voice recognition software. It may contain grammatical, syntax or spelling errors. Electronically signed by: Basim Johnson M.D. 06/25/2022 2:[address] 06/25/22 12:44 CT head/brain wo con, CT angio head w con CLINICAL HISTORY: 61 years-old Female with headache; hx of aneurysms. Acute headache in a patient with history of aneurysms TECHNIQUE: Multiple axial CT images of the head were obtained without contrast. CTA of the head was also obtained following the intravenous administration of 120 mL Optiray 320. 3-D coronal and sagittal MIPS were obtained from the axial data set and were submitted for review. All measurements were obtained according to NASCET criteria. A dose lowering technique was utilized adhering to the principles of ALARA. CT DOSE: 719.35 mGy.cm COMPARISON: None. FINDINGS: CT HEAD: No acute intracranial hemorrhage, midline shift, intracranial mass, hydrocephalus, territorial ischemia or abnormal extra-axial collection. The calvarium is intact. Mild rightward bowing and spurring of the nasal septum. The paranasal sinuses, mastoid air cells, and middle ear cavities are clear. CTA: The imaged distal internal carotid arteries are patent. The middle and anterior cerebral arteries are patent. The distal vertebral arteries are within normal limits. The basilar and posterior cerebral arteries are patent. There is no aneurysm, dissection, high-grade stenosis or arterial occlusion. The cerebral venous sinuses are patent. There is no abnormal intracranial enhancement. IMPRESSION: 1. No acute intracranial abnormality. 2. Unremarkable CTA of the head. ACT 112: Negative or not required by law. The above report was generated using voice recognition software. It may contain grammatical, syntax or spelling errors. Electronically signed by: Basim Johnson M.D. 06/25/2022 2:14 PM Discharge Plan Visit Data Chief Complaint: Referred by Doctor Stated Complaint: POSSIBLE PNEUMONIA ED Provider: Melody Hanson Discharge Problem: Influenza A, Cough Patient Disposition: Admitted As Inpatient Forms Stand Alone Forms: [facility] Prescriptions Prescriptions: No Action amlodipine 5 mg Tablet 5 mg PO HS amitriptyline 10 mg Tablet 10 mg PO HS lorazepam 1 mg Tablet 1 mg PO HS PRN (Reason: Anxiety) fluticasone propionate 50 mcg/actuation [place],Suspension 2 spray INTRANASAL DAILY PRN (Reason: Nasal Congestion) citalopram 40 mg Tablet 40 mg PO HS oxycodone-acetaminophen [Percocet] 5-325 mg tablet 1 - 2 tab PO Q6H PRN (Reason: pain) Qty: 15 0RF Rx Instructions: INITIAL THERAPY rosuvastatin 5 mg tablet 5 mg PO DAILY Brilinta 90 mg tablet 90 mg PO BID Referrals Referrals: Marvin Rodriguez MD [Primary Care Provider] -
[2022-06-25 11:18] LABS: Alanine Aminotransferase 44 U/L (7-52); Albumin Globulin Ratio 1.5 (0.9-2); Albumin Level 4.1 gm/dl (3.4-5.0); Alkaline Phosphatase 71 U/L (34-104); Anion Gap 7 (3-11); Aspartate Aminotransferase 39 U/L (13-39); Bilirubin,Total 0.4 mg/dl (0.2-1.0); Blood Urea Nitrogen 18 mg/dl (6-23); Calcium 8.4 mg/dl (8.5-10.1); Carbon Dioxide 27 mmol/L (21-32); Chloride 104 mmol/L (98-107); Est GFR (African American) 103.3 ml/min; Est GFR (Non-African American) 89.1 ml/min; Globulin 2.8 gm/dl (2.5-4.0); Glucose 143 mg/dl (70-99(Fasting)); Potassium 3.8 mmol/L (3.5-5.1); Sodium 138 mmol/L (136-145); Total Protein 6.9 gm/dl (6.0-8.3)
[2022-06-25 11:23] LABS: Troponin I High Sensitivity 5.9 pg/ml (0-14)
[2022-06-25 11:48] LABS: Appearance Urine Cloudy (Clear); Bacteria Urine Automated Negative (Negative); Bilirubin Urine Negative (Negative); Blood Urine Trace (Negative); Color Urine Dark Yellow; Epithelial Cell Urine Auto >30 /lpf (0-5); Glucose Urine UA Negative (Negative); Ketones Urine Trace (Negative); Leukocyte Esterase Urine 1+ (Negative); Nitrite Urine Negative (Negative); Protein Urine Trace (Negative); Urobilinogen Urine Negative (Negative)
--- NOTE | 2022-06-25 11:55 | XRay Report ---
XR chest 1V portable CLINICAL HISTORY: Cough. COMPARISON STUDY: Chest radiograph February 01, 2019. FINDINGS: Lung volumes are normal. Lungs are clear. There is no pneumothorax or pleural effusion. Mil d cardiomegaly. Mediastinal contours are normal. There is no evidence for pulmonary edema. IMPRESSION: No acute cardiopulmonary findings. ACT 112: Negative or not required by law. Electronically signed by: Geovany Mc M.D. 06/25/2022 11:54 AM
[2022-06-25 11:59] LABS: Influenza B virus by PCR Negative (Neg); RSV by PCR Negative (Neg); SARS CoV2 RNA(COVID-19) Ceph NEGATIVE (Negative)
[2022-06-25 12:05] LABS: Influenza A virus by PCR Positive (Neg)
[2022-06-25 12:07] LABS: Calcium Oxalate Crystals Urine Present (None Prsent); RBC Urine Automated 0-4 /hpf (0-4)
[2022-06-25] MEDS ORDERED: ACETAMINOPHEN 1,000 MG/100 ML VIAL IV STA (12:18)
[2022-06-25] MEDS ORDERED: OPTIRAY 320 500ml IV ONE (13:49)
[2022-06-25] MEDS ORDERED: PROCHLORPERAZINE 1 ML IV ONE (14:06)
[2022-06-25] MEDS ORDERED: diphenhydrAMINE 50 MG/ML VIAL IV STA (14:06)
--- NOTE | 2022-06-25 14:15 | CT Scan Report ---
CT head/brain wo con, CT angio head w con CLINICAL HISTORY: 61 years-old Female with headache; hx of aneurysms. Acute headache in a patient wi th history of aneurysms TECHNIQUE: Multiple axial CT images of the head were obtained without contrast. CTA of the head was a lso obtained following the intravenous administration of 120 mL Optiray 320. 3-D coronal and sagittal MIPS were obtained from the axial data set and were submitted for review. All measurements were obta ined according to NASCET criteria. A dose lowering technique was utilized adhering to the principles of ALARA. CT DOSE: 719.35 mGy.cm COMPARISON: None. FINDINGS: CT HEAD: No acute intracranial hemorrhage, midline shift, intracranial mass, hydrocephalus, territorial ischem ia or abnormal extra-axial collection. The calvarium is intact. Mild rightward bowing and spurring of the nasal septum. The paranasal sinuse s, mastoid air cells, and middle ear cavities are clear. CTA: The imaged distal internal carotid arteries are patent. The middle and anterior cerebral arteries are patent. The distal vertebral arteries are within normal limits. The basilar and posterior cerebral a rteries are patent. There is no aneurysm, dissection, high-grade stenosis or arterial occlusion. The cerebral venous sinuses are patent. There is no abnormal intracranial enhancement. IMPRESSION: 1. No acute intracranial abnormality. 2. Unremarkable CTA of the head. ACT 112: Negative or not required by law. The above report was generated using voice recognition software. It may contain grammatical, syntax o r spelling errors. Electronically signed by: Basim Johnson M.D. 06/25/2022 2:14 PM
[2022-06-25] MEDS ORDERED: OSELTAMIVIR PHOSPHATE 75 MG CAP PO STA (15:53)
--- NOTE | 2022-06-25 16:21 | History & Physical Report ---
Date of Service June 25, 2022 Assessment & Plan (1) Influenza A: Plan: Patient is 61 y/o F with PMH HTN, HLD, asthma, depression, anxiety, migraine, RAMIREZ, unruptured brain aneurysm presented to ER with complaint of clear productive cough, myalgias, fever, chills, generalized weakness x 2 days. In ER T: 30 8.8C, P: 84, R: 20, BP 124/80, 91% on room air. Is reported patient dropped to 89% on room air in the ER No leukocytosis. + Influenza A PCR, negative RSV, COVID-19 PCR CXR: No acute finding In ER given IVF, IV Tylenol, Compazine, Benadryl Will start Tamiflu Duo nebs Incentive spirometer Supplemental oxygen as needed, wean as able CBC, BMP in a.m. (2) Hypertension: Plan: Continue amlodipine (3) HLD (hyperlipidemia): Plan: Continue rosuvastatin (4) Asthma: Plan: On albuterol as needed at home Duo nebs (5) Brain aneurysm: Plan: History unruptured brain aneurysm Following with neurosurgery at [facility] [place]. Was scheduled to have stent to right ICA at [facility] on 07/01/[address] Franco CTA Head: 1. No acute intracranial abnormality. 2. Unremarkable CTA of the head. Continue aspirin, Brilinta (6) Depression: (7) Anxiety: Plan: Continue citalopram, lorazepam. (8) RAMIREZ (obstructive sleep apnea): Plan: CPAP at bedtime (9) Migraine: Plan: Continue amitriptyline DVT Prophylaxis Lovenox SQ Full Code as per discussion with pt Follows with Dr Rodriguez for routine care Pt was seen and care coordinated with Dr Lanza. See addendum History of Present Illness Chief Complaint: Cough Primary Care Provider: Marvin Rodriguez MD Patient is 61 y/o F with PMH HTN, HLD, asthma, depression, anxiety, migraine, RAMIREZ, unruptured brain aneurysm presented to ER with complaint of cough x 2 days. Reports 2 days ago started with clear productive cough, myalgias, fever, chills, generalized weakness. Today fever of 103F. Has ANDERSON. H/O migraine but states this feels more like "normal ANDERSON" and denies photophobia, phonophobia. Tried OTC cold medication at home without relief. Seen in PCP clinic today and referred to ER for concern for possible pneumonia. Last week Covid-19 contact. She reports h/o COvid-19 in 2019 and has long haul symptoms of fatigue and SOB. Denies any increased SOB. Denies CP. Reports had influenza vaccine this season. Denies diaphoresis, N/V/D/C, dizziness, syncope, vision changes, neck pain, CP, orthopnea, palpitations, hemoptysis, sore throat, choking, otalgia, rhinorrhea, abdominal pain, paresthesias, extremity edema, rashes, urinary symptoms. Allergies Allergy/AdvReac Type Severity Reaction Status Date / Time Sulfa (Sulfonamide Allergy Intermediate severe Verified 06/25/22 10:19 Antibiotics) facial swelling lisinopril AdvReac Intermediate cough Verified 06/25/22 10:19 Home Medications Medication Instructions Recorded Confirmed Type amitriptyline 10 mg tablet 10 mg PO HS 02/01/19 06/25/22 History amlodipine 5 mg tablet 5 mg PO HS 02/01/19 06/25/22 History fluticasone propionate 50 2 spray intranasal DAILY PRN Nasal 02/01/19 06/25/22 History mcg/actuation nasal Congestion spray,suspension lorazepam 1 mg tablet 1 mg PO HS PRN Anxiety 02/01/19 06/25/22 History citalopram 40 mg tablet 40 mg PO HS 06/27/20 06/25/22 History albuterol sulfate 90 mcg/actuation 2 inh inhalation Q4H PRN Shortness 06/25/22 06/25/22 History aerosol inhaler Of Breath Or Wheezing aspirin 81 mg tablet,delayed 81 mg PO DAILY 06/25/22 06/25/22 History release cholecalciferol (vitamin D3) 50 50 mcg PO DAILY 06/25/22 06/25/22 History mcg (2,000 unit) capsule (Vitamin D3) rosuvastatin 5 mg tablet 5 mg PO DAILY 06/25/22 06/25/22 History ticagrelor 90 mg tablet (Brilinta) 90 mg PO BID 06/25/22 06/25/22 History Past Med/Surg History Medical History (Updated 06/25/22 @ 20:14 by Indira Quinn PA-C) Anxiety Asthma Brain aneurysm unruptured Depression DJD (degenerative joint disease), cervical GERD (gastroesophageal reflux disease) HLD (hyperlipidemia) Hypertension Migraine RAMIREZ (obstructive sleep apnea) Osteoarthritis Surgical History H/O: hysterectomy History of S/P appendectomy Family History (Updated 06/25/22 @ 20:11 by Indira Quinn PA-C) Mother Coronary heart disease Brother Diabetes Other Prostate cancer Social History (Updated 06/25/22 @ 20:12 by Indira Quinn PA-C) Smoking Status: Never smoker Hx Alcohol Use: Yes Alcohol type: beer and wine Alcohol Intake Frequency: 2-4 x/Month Hx Substance Use: No Preferred Language: Eritrean Communication Ability: Effective Mail Clerk Bills Required: No Beliefs That Will Affect Care: None Current Living Situation: Spouse Other Information That Helps Us Care for You: No Feels Safe at Home: Yes Safety Concerns: Feels Safe At This Time Assistive Devices: None Review of Systems Review of Systems: All systems reviewed & are unremarkable except as noted in HPI & below Physical Exam Physical Exam: General: no acute distress, obese Head: normocephalic, atraumatic Eyes: PERRL, EOM's intact, conjunctiva non-injected, anicteric ENT: normal inspection external ears, nose, mucous membranes moist Neck: supple, trachea midline Lungs: no respiratory distress on current 2L via NC, + wheezing throughout, +rales RLL CV: RRR, no murmur, no pretibial edema Abd: normal BS, soft, non-tender Ext: no cyanosis, no calf tenderness Neuro: A&O x 3, no focal deficits noted, normal affect Skin: warm, dry Results & Data Results & Data ([facility]) Vital Signs (Past 12 Hours) Vital Signs Temp Pulse Pulse Resp BP BP Pulse Ox 06/25/22 16:00 69 126/69 93 06/25/22 14:06 38.1 C H 64 18 123/67 93 06/25/22 10:56 85 18 120/71 93 06/25/22 08:56 83 20 135/77 91 06/25/22 09:07 38.8 C H 84 20 124/80 91 O2 Del Method O2 Flow Rate 06/25/22 16:00 Nasal Cannula 2 06/25/22 14:06 Nasal Cannula 2 06/25/22 10:56 Room Air 06/25/22 08:56 Room Air 06/25/22 09:07 Room Air Laboratory Results Short CBC 06/25/22 Range/Units 10:25 WBC 6.08 (4.8-10.8) K/ul Hgb 12.8 (12.0-16.0) g/dl Hct 38.4 (34.1-44.9) % Plt Count 215 (130-400) K/uL BMP 06/25/22 10:25 Sodium 138 Potassium 3.8 Chloride 104 Carbon Dioxide 27 BUN 18 Creatinine 0.72 Glucose 143 H Calcium 8.4 L Liver Function 06/25/22 Range/Units 10:25 Total Bilirubin 0.4 (0.2-1.0) mg/dl AST 39 (13-39) U/L ALT 44 (7-52) U/L Alkaline Phosphatase 71 (34-104) U/L Albumin 4.1 (3.4-5.0) gm/dl Urine 06/25/22 Range/Units 11:14 Urine Color Dark Yellow Urine Appearance Cloudy A (Clear) Urine pH 5.0 (4.5-7.5) Ur Specific Mobile 1.030 (1.000-1.030) Urine Protein Trace H (Negative) Urine Glucose (UA) Negative (Negative) Diagnostic Findings Chest X-Ray 06/25/22 10:34 XR chest 1V portable CLINICAL HISTORY: Cough. COMPARISON STUDY: Chest radiograph February 01, 2019. FINDINGS: Lung volumes are normal. Lungs are clear. There is no pneumothorax or pleural effusion. Mild cardiomegaly. Mediastinal contours are normal. There is no evidence for pulmonary edema. IMPRESSION: No acute cardiopulmonary findings. ACT 112: Negative or not required by law. Electronically signed by: Geovany Mc M.D. 06/25/2022 11:54 AM Head CTA 06/25/22 12:19 CT head/brain wo con, CT angio head w con CLINICAL HISTORY: 61 years-old Female with headache; hx of aneurysms. Acute headache in a patient with history of aneurysms TECHNIQUE: Multiple axial CT images of the head were obtained without contrast. CTA of the head was also obtained following the intravenous administration of 120 mL Optiray 320. 3-D coronal and sagittal MIPS were obtained from the axial data set and were submitted for review. All measurements were obtained according to NASCET criteria. A dose lowering technique was utilized adhering to the principles of ALARA. CT DOSE: 719.35 mGy.cm COMPARISON: None. FINDINGS: CT HEAD: No acute intracranial hemorrhage, midline shift, intracranial mass, hydrocephalus, territorial ischemia or abnormal extra-axial collection. The calvarium is intact. Mild rightward bowing and spurring of the nasal septum. The paranasal sinuses, mastoid air cells, and middle ear cavities are clear. CTA: The imaged distal internal carotid arteries are patent. The middle and anterior cerebral arteries are patent. The distal vertebral arteries are within normal limits. The basilar and posterior cerebral arteries are patent. There is no aneurysm, dissection, high-grade stenosis or arterial occlusion. The cerebral venous sinuses are patent. There is no abnormal intracranial enhancement. IMPRESSION: 1. No acute intracranial abnormality. 2. Unremarkable CTA of the head. ACT 112: Negative or not required by law. The above report was generated using voice recognition software. It may contain grammatical, syntax or spelling errors. Electronically signed by: Basim Johnson M.D. 06/25/2022 2:[address] 06/25/22 12:44 CT head/brain wo con, CT angio head w con CLINICAL HISTORY: 61 years-old Female with headache; hx of aneurysms. Acute headache in a patient with history of aneurysms TECHNIQUE: Multiple axial CT images of the head were obtained without contrast. CTA of the head was also obtained following the intravenous administration of 120 mL Optiray 320. 3-D coronal and sagittal MIPS were obtained from the axial data set and were submitted for review. All measurements were obtained according to NASCET criteria. A dose lowering technique was utilized adhering to the principles of ALARA. CT DOSE: 719.35 mGy.cm COMPARISON: None. FINDINGS: CT HEAD: No acute intracranial hemorrhage, midline shift, intracranial mass, hydrocephalus, territorial ischemia or abnormal extra-axial collection. The calvarium is intact. Mild rightward bowing and spurring of the nasal septum. The paranasal sinuses, mastoid air cells, and middle ear cavities are clear. CTA: The imaged distal internal carotid arteries are patent. The middle and anterior cerebral arteries are patent. The distal vertebral arteries are within normal limits. The basilar and posterior cerebral arteries are patent. There is no aneurysm, dissection, high-grade stenosis or arterial occlusion. The cerebral venous sinuses are patent. There is no abnormal intracranial enhancement. IMPRESSION: 1. No acute intracranial abnormality. 2. Unremarkable CTA of the head. ACT 112: Negative or not required by law. The above report was generated using voice recognition software. It may contain grammatical, syntax or spelling errors. Electronically signed by: Basim Johnson M.D. 06/25/2022 2:14 PM Code Status & VTE Plan VTE Prophylaxis Plan VTE Prophylaxis will be ordered: Yes Supervising Physician Co-Signing Physician Notes 61 yo F w/ PMH of GERD, OA, HTN , anxiety, ramirez (on CPAP), intracranial aneurysm for sx next week per pt presented from PCP office due to concern of pneumonia. 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 Will add tamiflu, symptomatic management. Incentive spirometer. Labs and imaging reviewed. on Exam: GENERAL: Alert and oriented x3. NAD, on 2L NC O2, appears ill. HEENT: No pallor, no icterus. Pupils equal, round and reactive to light. Oral mucosa moist. NECK: No JVD, no neck masses. HEART: S1 and S2 heard. Regular rate and rhythm. No murmur, no gallop. RESPIRATORY SYSTEM: Normal AP diameter. No accessory muscle use. No wheezing, b/l crackles. ABDOMEN: Soft, bowel sounds present, nontender, no distention. CENTRAL NERVOUS SYSTEM: No facial droop. Speech is clear. Obeys simple commands. Moves extremities. EXTREMITIES: No edema, no erythema seen. I have seen and examined the patient and have discussed the case with the provider above. I agree with the assessment and plan as stated.
[2022-06-25] MEDS ORDERED: POLYETHYLENE (MIRALAX) 17 GM PACK PO PRN (17:30)
[2022-06-25] MEDS ORDERED: ACETAMINOPHEN 325 MG TAB PO PRN (17:30)
[2022-06-25] MEDS ORDERED: LORazepam 1 MG TAB PO PRN (17:30)
[2022-06-25] MEDS ORDERED: PROMETHAZINE HCL 12.5 MG in SODIUM CHLORIDE 0.9% 50 ML IV PRN (17:30)
[2022-06-25] MEDS ORDERED: ALBUT/IPRATROP 3MG/0.5MG NEB 3 ML VIAL NEB PRN (17:52)
[2022-06-25] MEDS ORDERED: ENOXAPARIN INJ 40 MG/0.4 ML SYR SQ SCH (18:00)
[2022-06-25] MEDS: ALBUT/IPRATROP 3MG/0.5MG NEB 3 ML VIAL NEB SCH (19:53)
[2022-06-25] MEDS: OSELTAMIVIR PHOSPHATE 75 MG CAP PO SCH (20:25)
[2022-06-25] MEDS: TICAGRELOR 90 MG TAB PO SCH (20:27)
[2022-06-25] MEDS ORDERED: amLODIPine BESYLATE 5 MG TAB PO SCH (21:00)
[2022-06-25] MEDS ORDERED: AMITRIPTYLINE HCL 10 MG TAB PO SCH (21:00)
[2022-06-26 06:47] LABS: Hematocrit (blood only) 37.8 % (34.1-44.9); Hemoglobin 12.5 g/dl (12.0-16.0); Mean Corpuscular Hemoglobin 28.7 pg (25.0-34.0); Mean Corpuscular Hgb Conc 33.1 g/dL (32.0-36.0); Mean Corpuscular Volume 86.9 fL (80.0-100.0); Mean Platelet Volume 9.1 fL (9.4-12.3); Platelet Count 212 K/uL (130-400); RDW Standard Deviation 41.5 fL (36.4-46.3); Red Blood Count 4.35 M/uL (3.93-5.22); White Blood Count 3.43 K/ul (4.8-10.8)
[2022-06-26 07:03] LABS: BUN Creatinine Ratio 18.8 (10-20); Calcium 7.4 mg/dl (8.5-10.1); Creatinine Clr Calc Pharmacy 99.3 ml/min; Est GFR (African American) 110.1 ml/min; Potassium 3.8 mmol/L (3.5-5.1)
[2022-06-26] MEDS: ALBUT/IPRATROP 3MG/0.5MG NEB 3 ML VIAL NEB SCH (07:57)
[2022-06-26] MEDS: TICAGRELOR 90 MG TAB PO SCH (08:53)
[2022-06-26] MEDS: OSELTAMIVIR PHOSPHATE 75 MG CAP PO SCH (08:53)
[2022-06-26] MEDS ORDERED: ASPIRIN 81 MG ECTAB PO SCH (09:00)
[2022-06-26] MEDS ORDERED: ROSUVASTATIN CALCIUM 5 MG TAB PO SCH (09:00)
--- NOTE | 2022-06-26 11:26 | Discharge Summary ---
Date of Service June 26, 2022 Admission HPI Per Admitting Provider Patient is 61 y/o F with PMH HTN, HLD, asthma, depression, anxiety, migraine, RAMIREZ, unruptured brain aneurysm presented to ER with complaint of cough x 2 days. Reports 2 days ago started with clear productive cough, myalgias, fever, chills, generalized weakness. Today fever of 103F. Has ANDERSON. H/O migraine but states this feels more like "normal ANDERSON" and denies photophobia, phonophobia. Tried OTC cold medication at home without relief. Seen in PCP clinic today and referred to ER for concern for possible pneumonia. Last week Covid-19 contact. She reports h/o COvid-19 in 2019 and has long haul symptoms of fatigue and SOB. Denies any increased SOB. Denies CP. Reports had influenza vaccine this season. Denies diaphoresis, N/V/D/C, dizziness, syncope, vision changes, neck pain, CP, orthopnea, palpitations, hemoptysis, sore throat, choking, otalgia, rhinorrhea, abdominal pain, paresthesias, extremity edema, rashes, urinary symptoms. Admission Exam Per Admitting Provider General: no acute distress, obese Head: normocephalic, atraumatic Eyes: PERRL, EOM's intact, conjunctiva non-injected, anicteric ENT: normal inspection external ears, nose, mucous membranes moist Neck: supple, trachea midline Lungs: no respiratory distress on current 2L via NC, + wheezing throughout, +rales RLL CV: RRR, no murmur, no pretibial edema Abd: normal BS, soft, non-tender Ext: no cyanosis, no calf tenderness Neuro: A&O x 3, no focal deficits noted, normal affect Skin: warm, dry Principal Diagnosis influenza Discharge Exam GENERAL: Alert and oriented x3. NAD, well appearing HEENT: No pallor, no icterus. Pupils equal, round and reactive to light. Oral mucosa moist. NECK: No JVD, no neck masses. HEART: S1 and S2 heard. Regular rate and rhythm. No murmur, no gallop. RESPIRATORY SYSTEM: Normal AP diameter. No accessory muscle use. No wheezing, CTAB. ABDOMEN: Soft, bowel sounds present, nontender, no distention. CENTRAL NERVOUS SYSTEM: No facial droop. Speech is clear. Obeys simple commands. Moves extremities. EXTREMITIES: No edema, no erythema seen. Discharge Data Allergies Allergy/AdvReac Type Severity Reaction Status Date / Time Sulfa (Sulfonamide Allergy Intermediate severe Verified 06/25/22 10:19 Antibiotics) facial swelling lisinopril AdvReac Intermediate cough Verified 06/25/22 10:19 Consultations 06/25/22 15:21 ED Decision to Admit Stat Ordered Studies 06/25/22 12:19 CTA head w con [CT angio head w con] Stat 06/25/22 12:44 CT head/brain wo con Stat Hospital Course (1) Influenza A: Patient is 61 y/o F with PMH HTN, HLD, asthma, depression, anxiety, migraine, RAMIREZ, unruptured brain aneurysm presented to ER with complaint of clear productive cough, myalgias, fever, chills, generalized weakness x 2 days. In ER T: 30 8.8C, P: 84, R: 20, BP 124/80, 91% on room air. Is reported patient dropped to 89% on room air in the ER No leukocytosis. + Influenza A PCR, negative RSV, COVID-19 PCR CXR: No acute finding In ER given IVF, IV Tylenol, Compazine, Benadryl - continue tamiflu Duo nebs Incentive spirometer Supplemental oxygen as needed, wean as able - tolerating RA - feeling better, ok for discharge (2) Hypertension: Continue amlodipine (3) HLD (hyperlipidemia): Continue rosuvastatin (4) Asthma: On albuterol as needed at home Duo nebs (5) Brain aneurysm: History unruptured brain aneurysm Following with neurosurgery at [facility] [place]. Was scheduled to have stent to right ICA at [facility] on 07/01/[address] Franco CTA Head: 1. No acute intracranial abnormality. 2. Unremarkable CTA of the head. Continue aspirin, Brilinta (6) Depression: (7) Anxiety: Continue citalopram, lorazepam. (8) RAMIREZ (obstructive sleep apnea): CPAP at bedtime (9) Migraine: Continue amitriptyline DVT Prophylaxis Lovenox SQ Full Code as per discussion with pt Follows with Dr Rodriguez for routine care Pt was seen and care coordinated with Dr Lanza. See addendum Total Time Total Time Spent Total Time Spent (In Minutes): 21 Total Time Includes: Examination of the Patient, Discharge Planning and Medication Reconciliation Discharge Plan Discharge Items Patient Disposition: Home - Self-Care Reason For Visit: INFLUENZA Discharge Diagnosis: Influenza Activity: Resume your previous activity Non-emergency contact: Primary Care Provider Call non-emergency contact if: you have any medication questions and your symptoms worsen Follow-up/Referrals: Marvin Rodriguez MD [Primary Care Provider] - Diet: Heart Healthy Addtl Attending Provider Instructions: You were admitted with the flu and found to have slightly low oxygen on admission. You received supportive treatment and Tamiflu. You had improvement after treatment and were ready for discharge home. Please finish 2 more days of Tamiflu and follow up with your primary care doctor after discharge. Pending Studies at Discharge: No Stand-Alone Forms: My [employer], Smoking Cessation Medications and DC Order Prescriptions: New oseltamivir [Tamiflu] 75 mg Capsule 75 mg PO BID Qty: 4 0RF Continued amlodipine 5 mg Tablet 5 mg PO HS amitriptyline 10 mg Tablet 10 mg PO HS lorazepam 1 mg Tablet 1 mg PO HS PRN (Reason: Anxiety) fluticasone propionate 50 mcg/actuation Murray,Suspension 2 spray INTRANASAL DAILY PRN (Reason: Nasal Congestion) citalopram 40 mg Tablet 40 mg PO HS rosuvastatin 5 mg tablet 5 mg PO DAILY Brilinta 90 mg tablet 90 mg PO BID aspirin 81 mg Tablet,Delayed Release (Dr/Ec) 81 mg PO DAILY albuterol sulfate 90 mcg/actuation HFA aerosol inhaler 2 inh INHALATION Q4H PRN (Reason: Shortness Of Breath Or Wheezing) cholecalciferol (vitamin D3) [Vitamin D3] 50 mcg (2,000 unit) Capsule 50 mcg PO DAILY Discharge Orders: Discharge Order (Routine); Ordered 06/26/22 Ordered By: Emerson An/Other Patient Handouts: ED Influenza (Adult) Admission Data Admit Date/Time: 06/25/22 15:31 Attending Provider: Emerson Kennedy Admit Provider: Rita Lanza Primary Care Provider: Marvin Rodriguez Other Providers: Rita Lanza Other Interventions: Discharge Summary Assessment (RN) Last Done: 06/26/22 09:04
[2022-06-26] MEDS ORDERED: CITALOPRAM 40 MG TAB PO SCH (21:00)
== END 2022-06-26 10:23 | disposition home or self-care (01) ==
LOC: 3W 08:55 → ED 08:55 → SUATTDRO 15:31 → 3W 17:10